=== PATIENT | male | born 1945 | race Caucasian/White ===

== ENCOUNTER 2016-03-30 05:40 | Emergency (ER) | payer OTHER ==
[~2016-03-30] VITALS: Ht 170.1 cm; Wt 117.9 kg
[~2016-03-30 05:40] MED LIST: ALLOPURINOL100 MG PO; AMLODIPINE10 MG PO; CITALOPRAM40 MG PO; DELTASONE20 M1 PO; DIABETA2.5 MG PO; IRON1 CHI; LASIX40 MG PO; LISINOPRIL40 MG PO; MS CONTIN30 MG PO; NEURONTIN300 MG PO; VICODIN ES 7501 TA1 PO; [UNRECOGNIZED DRUG - OTHER]
[2016-03-30 06:02] LABS: BASO % 0.3 % (0.0-1.0); EOS # 0.2 10*3/uL (0.0-0.4); EOS % 1.3 % (1.0-4.0); HEMATOCRIT 42.2 % (42.0-52.0); HEMOGLOBIN 12.6 g/dl (14.0-18.0); IG # 0.1 10*3/uL (0.0-0.1); LYMPH # 1.5 10*3/uL (1.3-4.4); LYMPH % 9.7 % (27.0-41.0); MEAN CELL VOLUME 96.6 fl (80.0-94.0); MEAN CORPUSCULAR HGB 28.8 pg (27.0-31.0); MEAN CORPUSCULAR HGB CONC 29.9 g/dl (33.0-37.0); MEAN PLATELET VOLUME 11.5 fl (9.6-12.3); MONO % 6.5 % (3.0-9.0); NEUT # 12.8 10*3/uL (2.3-7.9); NEUT % 81.8 % (47.0-73.0); PLATELET COUNT AUTOMATED 192 10*3/uL (130-400); RED BLOOD COUNT 4.37 10*6/uL (4.50-5.90); WHITE BLOOD COUNT 15.6 10*3/uL (4.8-10.8)
[2016-03-30 06:11] LABS: ABG BASE EXCESS -1.4 mmol/L (-2.0-2.0); ABG HCO3 26.9 mmol/l (22-26); ABG TEMPERATURE 98.6 F (98.0-99.0); ARTERIAL BLOOD GAS PH 7.234 (7.35-7.45); ARTERIAL BLOOD GAS PO2 61.3 mmHg (80-90)
[2016-03-30] MEDS ORDERED: APRESOLINE10 MG PO (06:22)
[2016-03-30] MEDS ORDERED: CALCITRIOL0.25 MCG PO (06:22)
[2016-03-30 06:26] LABS: POTASSIUM 5.1 mmol/L (3.5-5.1)
[2016-03-30] MEDS ORDERED: NOVOLIN 70100 UNIT/1 SQ ×2 (06:34→06:35)
[2016-03-30] MEDS ORDERED: ALLOPURINOL100 MG PO (06:36)
[2016-03-30] MEDS ORDERED: LABETALOL HCL200 MG PO (06:36)
[2016-03-30] MEDS ORDERED: FLOMAX0.4 MG PO (06:36)
[2016-03-30] MEDS ORDERED: SPIRONOLACTONE25 MG PO (06:37)
[2016-03-30] MEDS ORDERED: CITALOPRAM40 MG PO (06:38)
[2016-03-30] MEDS ORDERED: PROPRANOLOL HCL80 M3 PO (06:38)
[2016-03-30] MEDS ORDERED: MS CONTIN15 MG PO (06:39)
[2016-03-30 06:58] LABS: BILIRUBIN NEGATIVE (NEGATIVE); BLOOD NEGATIVE (NEGATIVE); CLARITY CLEAR (CLEAR); COLOR YELLOW (YELLOW); GLUCOSE NEGATIVE (NEGATIVE); KETONE NEGATIVE (NEGATIVE); LEUKO ESTERASE NEGATIVE (NEGATIVE); NITRITE NEGATIVE (NEGATIVE); PROTEIN 1+ (NEGATIVE); UROBILINOGEN 0.2 E.U./dl (0.2-1.0)
[2016-03-30 07:19] LABS: BACTERIA TRACE; EPITHELIAL CELLS 0-2; URINE REFLEX COMMENT NO (NO); WBC 0-2 wbc/hpf (0-5)
== END 2016-03-30 08:18 | disposition short-term general hospital (02) ==
LOC: ED 05:40
PROVIDERS: Emergency Medicine
DX: R06.00 Dyspnea, unspecified (principal); J96.01 Acute respiratory failure with hypoxia; E87.70 Fluid overload, unspecified; I12.9 Hypertensive chronic kidney disease with stage 1 through stage 4 chronic kidney disease, or unspecified chronic kidney disease; N18.9 Chronic kidney disease, unspecified; Z88.1 Allergy status to other antibiotic agents; Z79.4 Long term (current) use of insulin

== ENCOUNTER 2016-06-07 00:32 | Inpatient (IN) | payer OTHER ==
[2016-06-07] VITALS (10 sets, daily range): BP systolic 114–160; BP diastolic 50–84
[~2016-06-07] VITALS: Ht 177.8 cm; Wt 152.6 kg
--- NOTE | ~2016-06-07 | CON ---
[place], [place] REPORT OF CONSULTATION NAME: JOSH HOWARD UNIT #: [id number] ROOM: 521 DOCTOR: RAMÍREZ STEEL MD BIRTHDATE: [birth year] DOS: 06/09/2016 HISTORY OF PRESENT ILLNESS: The patient is a 70-year-old female with a known history of diastolic heart failure, history of end-stage COPD, sleep apnea, recently admitted to the hospital with severe CHF. The patient had a stress test and echocardiogram basically showed an ejection fraction about 45% and patient was readmitted with severe shortness of breath and progressive dyspnea. No acute EKG changes suggestive of myocardial ischemia. The patient has stage 4 kidney disease also and patient got admitted on the . The patient being admitted adequately, diuresed and doing well, no acute EKG changes suggestion of myocardial injury. The patient has a small right pleural effusion with bibasilar atelectasis by chest x-ray. PAST MEDICAL HISTORY: Depression, sleep apnea, history of CVA, chronic kidney disease, diabetes mellitus, obesity, hypertension, hyperlipidemia. PAST SURGICAL HISTORY: Back surgery, carpal tunnel surgery, history of artificial ____. SOCIAL HISTORY: Does not drink any alcohol. Former smoker. FAMILY HISTORY: Noncontributory. ALLERGIES: ERYTHROMYCIN. HOME MEDICATIONS: Hydralazine, insulin, labetalol, morphine, spironolactone, torsemide. REVIEW OF SYSTEMS: CONSTITUTIONAL: No fever, no chills. HEENT: Denies any visual disturbances or hearing problems. CARDIOVASCULAR: Reports lower extremity edema. No chest discomfort. No palpitations. RESPIRATORY: Significant shortness of breath with coughing and wheezing. ABDOMEN: Soft, obese. EXTREMITIES: About 2+ edema. NEUROLOGIC: No syncope. PSYCHIATRIC: Intact. SKIN: No rashes. PHYSICAL EXAMINATION: VITAL SIGNS: Blood pressure is 140/70. NECK: Elevated jugular venous distention. LUNGS: Diminished air entry. HEART: Heart sounds are regular. ABDOMEN: Soft, nontender, obese. EXTREMITIES: Intact pulses. NEUROLOGICAL: Stable. IMAGING: Chest x-ray showed right middle lobe pneumonia, pulmonary artery [place], [place] REPORT OF CONSULTATION NAME: JOSH HOWARD UNIT #: [id number] ROOM: 521 DOCTOR: RAMÍREZ STEEL MD BIRTHDATE: [birth year] hypertension. LABORATORY DATA: Shows hemoglobin 10.1, hematocrit 34, platelet count within normal limits. Sodium 139, potassium 5.1, creatinine is 2.7. INR is 1.0. IMPRESSION: The patient with acute respiratory failure, probable pneumonia, morbid hypertension, history of diastolic heart failure. Echocardiogram showed an ejection fraction about 45%. The patient underwent modified barium swallow also, has pharyngeal swallowing and was recommended soft diet. Echo as mentioned showed an EF of 45%. RECOMMENDATIONS: To continue with the present medications. Strict I's and O's ____ the patient is on vancomycin and ____, small gentle diuretic, monitor the renal function closely. Potassium is elevated. The patient has chronic renal insufficiency and we will follow up. RAMÍREZ STEEL MD CM:CONSTR:REPORT OF CONSULTATION 0714 06/09/16 0750 interface
--- NOTE | ~2016-06-07 | PR ---
[place], [place] PROGRESS NOTE NAME: JOSH HOWARD UNIT #: [id number] ROOM: 521 DOCTOR: RAMÍREZ STEEL MD BIRTHDATE: [birth year] DOS: 06/11/2016 SUBJECTIVE: The 24-hour events noted. The patient is comfortably sleeping. Clinical condition is improving. OBJECTIVE: VITAL SIGNS: Todays blood pressure is elevated to be 170/80. HEENT: Unremarkable. NECK: Supple, no JVD. LUNGS: Diminished breath sounds. LABORATORY DATA: Urine output is negative 960. Hemoglobin 10.1, hematocrit 33.8, BUN and creatinine is 19 and 2.7, which is significantly increased. IMPRESSION AND PLAN: Pneumonia, respiratory failure, diastolic heart failure, renal insufficiency stage IV, depression, chronic back pain, obstructive sleep apnea. There is no clinical evidence of cardiac decompensation. The patient probably increased the Coreg if the blood pressure is still elevated. The patient's diuretics should be closely watched as the patient is going into renal failure if he continues to be hypertensive. The patient is already on Aldactone also which should be taken into consideration and if the blood pressure is elevated add hydralazine to the current regimen, maybe start with 12.5 b.i.d. We will closely follow up. RAMÍREZ STEEL MD CM:PNTRANS [id number] RAMÍREZ STEEL MD 06/11/16 0751 interface
--- NOTE | ~2016-06-07 | PROC NOTE ---
[place], [place] PROCEDURE NOTE NAME: JOSH HOWARD UNIT #: [id number] ROOM: 521 DOCTOR: PETE SILVER BIRTHDATE: [birth year] DOS: 06/08/2016 MODIFIED BARIUM SWALLOW LOCATION: [facility], room 521, bed 1. DOCTOR: Dr. Tavares. RADIOLOGIST: Dr. Pollock. BACKGROUND INFORMATION: The patient is a 70-year-old male, who was seen for modified barium swallow. This test was ordered to rule out aspiration. The patient has experienced recurrent pneumonia. He also has a history of CVA. The patient reported a choking episode occurring about a week ago. Further medical history includes CHF, acute respiratory failure, end-stage renal disease, DM, HTN, depression. He currently receives a regular diet and thin liquids. For today's assessment, he was alert and able to follow commands. He was receiving oxygen via nasal cannula. Oral peripheral examination revealed presence of few natural teeth. Lingual, labial, and buccal skills were within normal limits in terms of strength, range of motion, and coordination. The patient was able to volitionally cough and swallow. METHODS AND MATERIALS USED FOR THE EXAM: The patient was positioned in the lateral plane and examination was viewed under fluoroscopy. The patient was presented with a variety of consistencies to assess swallowing skills including applesauce mixed with barium presented in half teaspoon amounts, barium-coated banana and cookie presented in bite size pieces and thin liquid barium taken by cup. The patient swallowed from a cup in his normal sip size amount. ORAL PHASE: Unremarkable. PHARYNGEAL PHASE: Unremarkable. ESOPHAGEAL PHASE: This phase of the swallow was not formally assessed during this examination. IMPRESSIONS AND RECOMMENDATIONS: Based upon assessment results, this 70-year-old patient presents with oral and pharyngeal swallowing skills that are within normal limits. It is recommended that he remain on present diet. The patient was educated on universal safe swallow precautions to use with meals including small bites and sips, eating slowly and chewing thoroughly. The patient verbalized understanding and agreement of information provided. No followup therapy is recommended at this time. The patient's nurse was also educated on results and verbalized understanding. Thank you very much for this referral. Should you have any questions regarding this patient, please contact the speech pathologist at [phone]. [place], [place] PROCEDURE NOTE NAME: JOSH HOWARD UNIT #: [id number] ROOM: 521 DOCTOR: PETE ISLVER BIRTHDATE: [birth year] PETE SILVER CM:PROCNOTE:PROCEDURE NOTE [id number] PETE SILVER
--- NOTE | ~2016-06-07 | PR ---
[place], [place] PROGRESS NOTE NAME: JOSH HOWARD UNIT #: [id number] ROOM: 521 DOCTOR: KARL BUSCH MD BIRTHDATE: [birth year] DOS: 06/10/2016 SUBJECTIVE: This gentleman was admitted with chest infection. He also has mildly reduced systolic function of the left ventricle and has had diastolic heart failure. He was admitted to the hospital a few days ago. He has very little cough now. No chest pain or palpitations, has not had any fever or chills. His appetite is fine. OBJECTIVE: GENERAL: He looks well, he is a very large man. VITAL SIGNS: Temperature is 98.6 degrees Fahrenheit, pulse is 80 regular, blood pressure 173/76, most of the blood pressures have been modestly elevated. CARDIOVASCULAR: JVP is normal and there is hardly any edema of lower extremities. LUNGS: Breath sounds are diminished with some adventitious sounds. IMPRESSION: 1. Acute chest infection, being treated. 2. There is no clinical evidence of cardiac decompensation. Current cardiac medications should be continued. I saw this patient on behalf of Dr. Esposito. KARL BUSCH MD CM:PNTRANS 08 [id number] KARL BUSCH MD 06/10/16 1212 interface
--- NOTE | ~2016-06-07 | CON ---
[place], [place] REPORT OF CONSULTATION NAME: JOSH HOWARD UNIT #: [id number] ROOM: 521 DOCTOR: KARL BUSCH MD BIRTHDATE: [birth year] DOS: 06/08/2016 HISTORY OF PRESENT ILLNESS: This is a 70-year-old -[place] man with a history of essential hypertension, diabetes mellitus, morbid obesity, and I believe heart failure, what kind is not known to me. He has never had a heart attack and had a stress test in the very remote past. He has some kidney disease as well and COPD. Couple of days prior to this admission, he became more and more short of breath and presented to the ER with worsening shortness of breath. He had no cough, no expectoration. He had no fever or chills. His appetite was fine. He had no palpitations or chest pain. He has not had any swelling of the legs. He has had no nausea, abdominal pain, or blood in the stools. HOME MEDICATIONS: Include allopurinol, Calcitriol, vitamin D, citalopram, hydralazine 20 mg t.i.d., labetalol 400 mg b.i.d., MS Contin 15 mg b.i.d., spironolactone 25 mg, 12.5 mg daily, Flomax 0.4 mg daily, torsemide 100 mg half tablet daily, and NovoLog mix 50/30 60 units b.i.d. PHYSICAL EXAMINATION: GENERAL: This reveals a patient who is morbidly obese. He is comfortable, having his lunch. He is afebrile. There is no thyromegaly or finger clubbing. VITAL SIGNS: Pulse is 80 bit irregular. Blood pressure 176/60, blood pressure has been mildly elevated since admission. NECK: JVP is normal. AJR is negative. No bruit in the neck. HEART: There is no cardiomegaly. Cardiac auscultation reveals distant heart sounds. No obvious murmurs. 1+ pretibial edema. RESPIRATORY: Breath sounds are moderately diminished, probably because of morbid obesity. Very few adventitious sounds are audible. LABORATORY DATA: Chest x-ray demonstrated atelectasis on the right side, and a CT scan was performed which demonstrated no pulmonary embolism but finding consistent with pulmonary hypertension and right middle lobe pneumonia. When I reviewed the chest x-ray, it did appear to show some pulmonary vascular congestion. Troponin-I level is less than 0.015. Hemoglobin 10.8 g/dL. BUN 58, creatinine 2.52. IMPRESSION: 1. This patient had acute onset of shortness of breath, probably due to right lower lobe pneumonia, which on chest x-ray is not apparent. CT had identified this abnormality. I think shortness of breath is probably to some extent due to diastolic dysfunction as well, and volume status does not seem to be bad, i.e., normal jugular venous pressure and no edema of the lower extremities. 2. Chronic kidney disease, fairly advanced. 3. Moderate anemia is present, probably due to chronic kidney disease. [place], [place] REPORT OF CONSULTATION NAME: JOSH HOWARD UNIT #: [id number] ROOM: 521 DOCTOR: KARL BUSCH MD BIRTHDATE: [birth year] RECOMMENDATIONS: An echocardiogram has already been ordered. Dr. Steel will read this, and for the time being, continue on his current medication including Demadex/torsemide. Dr. Steel will see this patient tomorrow, perhaps he can reduce the dose of Demadex. I thank you on behalf of Dr. Steel for this consult. PS: An EKG demonstrated normal sinus rhythm with PACs, rate 67 beats per minute, and an interventricular conduction defect with moderate left axis deviation. KARL BUSCH MD CM:CONSTR:REPORT OF CONSULTATION 1233 06/11/16 0744 [address] and RAMÍREZ STEEL MD
[~2016-06-07 00:32] MED LIST changes: +APRESOLINE10 MG PO; +CALCITRIOL0.25 MCG PO; +FLOMAX0.4 MG PO; +LABETALOL HCL200 MG PO; +MS CONTIN15 MG PO; +NOVOLIN 70100 UNIT/1 SQ; +PROPRANOLOL HCL80 M3 PO; +SPIRONOLACTONE25 MG PO
[2016-06-07 00:59] LABS: BASO % 0.3 % (0.0-1.0); EOS # 0.2 10*3/uL (0.0-0.4); EOS % 2.1 % (1.0-4.0); HEMATOCRIT 35.5 % (42.0-52.0); HEMOGLOBIN 10.8 g/dl (14.0-18.0); LYMPH # 1.2 10*3/uL (1.3-4.4); LYMPH % 10.9 % (27.0-41.0); MEAN CELL VOLUME 94.7 fl (80.0-94.0); MEAN CORPUSCULAR HGB 28.8 pg (27.0-31.0); MEAN CORPUSCULAR HGB CONC 30.4 g/dl (33.0-37.0); MEAN PLATELET VOLUME 12.3 fl (9.6-12.3); MONO # 0.8 10*3/uL (0.1-1.0); MONO % 7.4 % (3.0-9.0); NEUT # 8.3 10*3/uL (2.3-7.9); NEUT % 78.9 % (47.0-73.0); PLATELET COUNT AUTOMATED 171 10*3/uL (130-400); RED BLOOD COUNT 3.75 10*6/uL (4.50-5.90); RED CELL DISTRI WIDTH 15.3 % (0-14.5); WHITE BLOOD COUNT 10.6 10*3/uL (4.8-10.8)
[2016-06-07] MEDS ORDERED: NOVOLOG MI100 UNIT/2 SQ (01:07)
[2016-06-07] MEDS ORDERED: MS CONTIN15 MG PO (01:08)
[2016-06-07] MEDS ORDERED: HYDRALAZINE10 MG PO (01:11)
[2016-06-07] MEDS ORDERED: TAMSULOSIN HCL0.4 MG PO (01:12)
[2016-06-07] MEDS ORDERED: LABETALOL HCL200 MG PO (01:12)
[2016-06-07] MEDS ORDERED: TORSEMIDE100 MG PO (01:13)
[2016-06-07] MEDS ORDERED: ALDACTONE25 MG PO (01:13)
[2016-06-07] MEDS ORDERED: VITAMIN D31000 IU PO (01:14)
[2016-06-07] MEDS ORDERED: ROCALTROL0.25 MC2 PO (01:14)
[2016-06-07 01:18] LABS: PROTHROMBIN TIME 10.7 SECONDS (9.0-12.4)
[2016-06-07 01:36] LABS: BUN 58 mg/dl (7-24); CARBON DIOXIDE 29 mmol/L (21-32); CHLORIDE 101 mmol/L (98-107); CKMB 2.4 ng/ml (0.5-3.6); CPK 77 U/L (39-308); EST GLOM FILT AFRICAN AMERICAN 30 ml/min; GLUCOSE 100 mg/dL (65-99); SODIUM 140 mmol/L (136-145)
[2016-06-07 01:37] LABS: TROPONIN I < 0.015 ng/ml (<0.045)
[2016-06-07 05:46] LABS: ABG BASE EXCESS 4.2 mmol/L (-2.0-2.0); ABG HCO3 29.5 mmol/l (22-26); ABG TEMPERATURE 98.1 F (98.0-99.0); ARTERIAL BLOOD GAS PH 7.388 (7.35-7.45); ARTERIAL BLOOD GAS PO2 89.3 mmHg (80-90)
[2016-06-07 06:49] LABS: CKMB 1.8 ng/ml (0.5-3.6); CPK 67 U/L (39-308)
[2016-06-07 06:51] LABS: TROPONIN I < 0.015 ng/ml (<0.045)
[2016-06-07 12:31] LABS: CPK 71 U/L (39-308)
[2016-06-07 12:33] LABS: TROPONIN I < 0.015 ng/ml (<0.045)
[2016-06-08] VITALS: BP 169/70
[2016-06-08 06:30] LABS: HEMOGLOBIN 10.1 g/dl (14.0-18.0); MEAN CELL VOLUME 95.5 fl (80.0-94.0); MEAN CORPUSCULAR HGB 28.4 pg (27.0-31.0); MEAN CORPUSCULAR HGB CONC 29.7 g/dl (33.0-37.0); MEAN PLATELET VOLUME 12.5 fl (9.6-12.3); PLATELET COUNT AUTOMATED 159 10*3/uL (130-400); RED BLOOD COUNT 3.56 10*6/uL (4.50-5.90); WHITE BLOOD COUNT 13.5 10*3/uL (4.8-10.8)
[2016-06-08 06:57] LABS: MAGNESIUM 2.6 mg/dL (1.5-2.1); PHOSPHOROUS 4.1 mg/dL (2.5-4.9); POTASSIUM 5.2 mmol/L (3.5-5.1)
[2016-06-08 07:01] LABS: PROTHROMBIN TIME 10.8 SECONDS (9.0-12.4)
[2016-06-08 07:06] LABS: FREE T4 1.27 ng/dl (0.76-1.46); THYROID STIM HORMONE (HS) 0.99 uIU/ml (0.358-4.75)
[2016-06-08 07:10] LABS: LYMPHOCYTE # 0.3 10*3/uL (1.3-4.4); MONOCYTE # 0.3 10*3/uL (0.1-1.0); NEUTROPHILS 96 % (47-73); TOTAL CELLS COUNTED 100 #CELLS
[2016-06-08 07:12] LABS: PLATELET SUFFICIENCY NORMAL (NORMAL); ROULEAUX SLIGHT
[2016-06-08 07:43] LABS: FOLIC ACID 17.71 ng/mL (>5.38)
[2016-06-08 08:00] VITALS: BP 176/70
[2016-06-08 12:00] VITALS: BP 160/70
[2016-06-08 16:00] VITALS: BP 156/71
[2016-06-08 20:00] VITALS: BP 154/61
[2016-06-09] VITALS: BP 166/70
[2016-06-09 06:43] LABS: HEMATOCRIT 33.8 % (42.0-52.0); HEMOGLOBIN 10.1 g/dl (14.0-18.0); MEAN CELL VOLUME 94.2 fl (80.0-94.0); MEAN CORPUSCULAR HGB 28.1 pg (27.0-31.0); MEAN CORPUSCULAR HGB CONC 29.9 g/dl (33.0-37.0); MEAN PLATELET VOLUME 11.6 fl (9.6-12.3); PLATELET COUNT AUTOMATED 168 10*3/uL (130-400); RED BLOOD COUNT 3.59 10*6/uL (4.50-5.90); RED CELL DISTRI WIDTH 14.8 % (0-14.5); WHITE BLOOD COUNT 11.4 10*3/uL (4.8-10.8)
[2016-06-09 07:11] LABS: POTASSIUM 5.1 mmol/L (3.5-5.1)
[2016-06-09 07:50] LABS: LYMPHOCYTE # 0.2 10*3/uL (1.3-4.4); NEUTROPHIL # 11.2 10*3/uL (2.3-7.9); NEUTROPHILS 98 % (47-73); PLATELET SUFFICIENCY NORMAL (NORMAL); POLYCHROMASIA SLIGHT; ROULEAUX SLIGHT; TOTAL CELLS COUNTED 100 #CELLS
[2016-06-09 08:00] VITALS: BP 170/82
[2016-06-09 12:00] VITALS: BP 174/70
[2016-06-09 16:00] VITALS: BP 155/64
[2016-06-09 20:00] VITALS: BP 171/70
[2016-06-10] VITALS: BP 155/93
[2016-06-10 04:00] VITALS: BP 173/76
[2016-06-10 08:00] VITALS: BP 179/88
[2016-06-10 12:00] VITALS: BP 169/60
[2016-06-10 16:00] VITALS: BP 171/76
[2016-06-10 20:00] VITALS: BP 155/80
[2016-06-11] VITALS: BP 179/81
[2016-06-11 04:00] VITALS: BP 170/84
[2016-06-11 06:13] LABS: POTASSIUM 5.1 mmol/L (3.5-5.1)
[2016-06-11 08:00] VITALS: BP 178/66
[2016-06-11] MEDS ORDERED: DOXYCYCLINE100 M3 PO (11:25)
[2016-06-11] MEDS ORDERED: PREDNISONE10 MG PO (11:25)
[2016-06-11] MEDS ORDERED: PROVENTIL0.09 MG/A1 INH (11:26)
== END 2016-06-11 11:30 | disposition home or self-care (01) | DRG 177 ==
LOC: ED 00:32 → 5E 01:55 → EDHOLD 01:55 → 5E 02:14
PROVIDERS: Emergency Medicine; Internal Medicine
PROC: BD11YZZ Fluoroscopy of Esophagus using Other Contrast (ICD-10-PCS; principal; 2016-06-08)
DX: J15.6 Pneumonia due to other Gram-negative bacteria (principal); J96.02 Acute respiratory failure with hypercapnia; I50.33 Acute on chronic diastolic (congestive) heart failure; B37.89 Other sites of candidiasis; N18.4 Chronic kidney disease, stage 4 (severe); I13.0 Hypertensive heart and chronic kidney disease with heart failure and stage 1 through stage 4 chronic kidney disease, or unspecified chronic kidney disease; J44.0 Chronic obstructive pulmonary disease with (acute) lower respiratory infection; Z68.42 Body mass index [BMI] 45.0-49.9, adult; E11.22 Type 2 diabetes mellitus with diabetic chronic kidney disease; E11.65 Type 2 diabetes mellitus with hyperglycemia; E66.01 Morbid (severe) obesity due to excess calories; N40.0 Benign prostatic hyperplasia without lower urinary tract symptoms; F41.1 Generalized anxiety disorder; F32.9 Major depressive disorder, single episode, unspecified; G47.33 Obstructive sleep apnea (adult) (pediatric); E55.9 Vitamin D deficiency, unspecified; M1A.9XX0 Chronic gout, unspecified, without tophus (tophi); G89.29 Other chronic pain; M54.9 Dorsalgia, unspecified; Z86.73 Personal history of transient ischemic attack (TIA), and cerebral infarction without residual deficits; Z87.891 Personal history of nicotine dependence; Z88.1 Allergy status to other antibiotic agents; Z79.4 Long term (current) use of insulin; Z79.899 Other long term (current) drug therapy; Z82.5 Family history of asthma and other chronic lower respiratory diseases; Z82.49 Family history of ischemic heart disease and other diseases of the circulatory system

== ENCOUNTER → 2016-09-03 | Outpatient (CLI) | payer OTHER ==
[~2016-09-03] MED LIST changes: +ALDACTONE25 MG PO; +DOXYCYCLINE100 M3 PO; +HYDRALAZINE10 MG PO; +NOVOLOG MI100 UNIT/2 SQ; +PREDNISONE10 MG PO; +PROVENTIL0.09 MG/A1 INH; +ROCALTROL0.25 MC2 PO; +TAMSULOSIN HCL0.4 MG PO; +TORSEMIDE100 MG PO; +VITAMIN D31000 IU PO
[2016-09-03 16:47] LABS: BILIRUBIN NEGATIVE (NEGATIVE); BLOOD NEGATIVE (NEGATIVE); CLARITY CLEAR (CLEAR); COLOR YELLOW (YELLOW); GLUCOSE NEGATIVE (NEGATIVE); KETONE NEGATIVE (NEGATIVE); LEUKO ESTERASE TRACE (NEGATIVE); NITRITE NEGATIVE (NEGATIVE); PH 5.5 (5.0-9.0); PROTEIN 1+ (NEGATIVE); UROBILINOGEN 0.2 E.U./dl (0.2-1.0)
[2016-09-03 16:55] LABS: RBC 0-2 rbc/hpf (0-2)
[2016-09-03 16:56] LABS: BACTERIA 1+; EPITHELIAL CELLS 0-2; HYALINE CAST 0-2; URINE REFLEX COMMENT YES (NO)
== END | disposition home or self-care (01) ==
LOC: LAB 16:32
PROVIDERS: Internal Medicine
DX: N39.0 Urinary tract infection, site not specified (principal)

== ENCOUNTER 2016-11-26 13:37 | Inpatient (IN) | payer OTHER ==
[~2016-11-26] VITALS: Ht 177.8 cm; Wt 148.8 kg
[2016-11-26 13:47] VITALS: BP 171/61
[2016-11-26 14:38] LABS: BASO % 0.4 % (0.0-1.0); EOS # 0.2 10*3/uL (0.0-0.4); EOS % 2.2 % (1.0-4.0); HEMATOCRIT 37.3 % (42.0-52.0); HEMOGLOBIN 11.3 g/dl (14.0-18.0); LYMPH % 14.6 % (27.0-41.0); MEAN CELL VOLUME 98.2 fl (80.0-94.0); MEAN CORPUSCULAR HGB 29.7 pg (27.0-31.0); MEAN CORPUSCULAR HGB CONC 30.3 g/dl (33.0-37.0); MEAN PLATELET VOLUME 11.5 fl (9.6-12.3); MONO # 0.7 10*3/uL (0.1-1.0); MONO % 9.6 % (3.0-9.0); NEUT % 72.9 % (47.0-73.0); PLATELET COUNT AUTOMATED 158 10*3/uL (130-400); RED CELL DISTRI WIDTH 15.7 % (0-14.5); WHITE BLOOD COUNT 6.9 10*3/uL (4.8-10.8)
[2016-11-26 14:46] LABS: ACT PARTIAL THROMBO TIME 26.3 SECONDS (20.8-31.5)
--- NOTE | 2016-11-26 14:51 | NUR ---
PT REQUESTING HIS RIGHT SHOULDER AND HIP BE X-RAYED DUE TO PAIN FROM FALL TODAY PRIOR TO ARRIVAL. ALSO STATES HE FEELS HIS BLOOD SUGAR WAS LOW. BLOOD SUGAR TESTED AND WAS AT 67. ORANGE JUICE PROVIDED. MADE AWARE. JULIEN CASE RN.
[2016-11-26 14:53] VITALS: BP 165/82
[2016-11-26 14:55] LABS: ALBUMIN 3.2 gm/dl (3.1-4.5); CREATININE 2.57 mg/dL (0.70-1.30); POTASSIUM 4.7 mmol/L (3.5-5.1); TOTAL PROTEIN 7.4 gm/dL (6.4-8.2)
[2016-11-26 15:43] LABS: BILIRUBIN NEGATIVE (NEGATIVE); BLOOD NEGATIVE (NEGATIVE); CLARITY CLEAR (CLEAR); COLOR YELLOW (YELLOW); GLUCOSE NEGATIVE (NEGATIVE); KETONE NEGATIVE (NEGATIVE); LEUKO ESTERASE NEGATIVE (NEGATIVE); NITRITE NEGATIVE (NEGATIVE); PH 5.5 (5.0-9.0); UROBILINOGEN 0.2 E.U./dl (0.2-1.0)
[2016-11-26 15:53] LABS: EPITHELIAL CELLS 0-2; WBC 0-2 wbc/hpf (0-5)
--- NOTE | 2016-11-26 17:00 | NUR ---
Time: 1699 A 71 year old MALE admitted to under services of ALFIE FARRELL DO. Pt. arrived via bed from ER. Chief complaint: WOUND-SKIN DRAINAGE. MICHELLE DONATO
[2016-11-26] MEDS ORDERED: AMOXICILLIN500 M2 PO (17:27)
[2016-11-26] MEDS ORDERED: XANAX0.25 MG PO (17:28)
[2016-11-26] MEDS ORDERED: PROAIR HFA8.5 GM INH (17:28)
[2016-11-26] MEDS ORDERED: TYLENOL EXTRA500 M2 PO (17:28)
[2016-11-26] MEDS ORDERED: NORCO 5-325 TA1 EACH PO ×2 (17:38→17:40)
[2016-11-26] MEDS ORDERED: NOVOLIN 70100 UNIT/1 SQ ×2 (17:44→17:45)
[2016-11-26 18:23] VITALS: BP 160/66
--- NOTE | 2016-11-26 18:35 | NUR ---
ATTEMPT MADE TO CONSULT DR EVERETT AND THEY STATED THEY DON'T TAKE CONSULTS AFTER HOURS. WILL PASS ALONG TO NEXT SHIFT. ORDER LEFT UN-AKNOWLEDGED.
[2016-11-26 20:00] VITALS: BP 147/89
--- NOTE | 2016-11-26 20:20 | NUR ---
PATIENT CALLED ME TO HIS ROOM. PATIENT STATED THAT HE TOOK THE TAPE OFF OF HIS ARM WHERE HE HAD BLOOD WORK DONE AND IT RIPPED THE SKIN OF OF HIS ARM AND EVERY TIME HE LAID HIS ARM DOWN IT WOULD BURN. PATIENT CONSENTED TO PHOTOS WHICH WERE THEN TAKEN. PATIENTS ARM WRAPPED WITH DRY GRUAZE DRESSING. DOCTOR INFORMED OF WOUND.
--- NOTE | 2016-11-26 21:47 | NUR ---
DOCTOR CHIVO INFORMED OF SKIN TEAR TO PATIENTS RIGHT ARM. WOUND CARE ORDRES REIEVED.
[2016-11-27] VITALS: BP 140/47
[2016-11-27 06:42] LABS: BASO % 0.5 % (0.0-1.0); EOS # 0.1 10*3/uL (0.0-0.4); EOS % 2.3 % (1.0-4.0); HEMATOCRIT 36.5 % (42.0-52.0); LYMPH # 0.7 10*3/uL (1.3-4.4); LYMPH % 11.7 % (27.0-41.0); MEAN CELL VOLUME 98.9 fl (80.0-94.0); MEAN CORPUSCULAR HGB 29.8 pg (27.0-31.0); MEAN CORPUSCULAR HGB CONC 30.1 g/dl (33.0-37.0); MEAN PLATELET VOLUME 12.3 fl (9.6-12.3); MONO # 0.5 10*3/uL (0.1-1.0); NEUT # 4.8 10*3/uL (2.3-7.9); NEUT % 77.2 % (47.0-73.0); PLATELET COUNT AUTOMATED 158 10*3/uL (130-400); RED BLOOD COUNT 3.69 10*6/uL (4.50-5.90); RED CELL DISTRI WIDTH 15.6 % (0-14.5); WHITE BLOOD COUNT 6.2 10*3/uL (4.8-10.8)
[2016-11-27 07:09] LABS: CREATININE 2.35 mg/dL (0.70-1.30); MAGNESIUM 2.3 mg/dL (1.5-2.1); PHOSPHOROUS 3.5 mg/dL (2.5-4.9); POTASSIUM 4.5 mmol/L (3.5-5.1)
[2016-11-27 07:15] LABS: THYROID STIM HORMONE (HS) 0.95 uIU/ml (0.358-4.75); VITAMIN D, 25-HYDROXY 49.4 ng/mL (30-100)
[2016-11-27 08:00] VITALS: BP 156/84
--- NOTE | 2016-11-27 08:56 | NUR ---
JOSH HOWARD [id number] Please refer to the physician's history and physical for past medical history, comorbid conditions, and allergies. Diagnosis: CELLULITIS OF RLE ELEVATED BLOOD PRESSURE READING Ac Score: 17,AT RISK WOUND DESCRIPTIONS: Location of the wound: right medial leg Type of wound: traumatic Thickness: Partial Size: 7.5cm x 9.0cm x 0.1cm Tunneling: none Undermining: none Sinus Tract: none Presence of Exudate: Sanguineous Amount: Moderate Color: Red Odor: Musty Periwound Skin Appearance: Erythema Wound edges: approximated Pain (associated with wound): none at time of assessment How does patient state this happened? pt stated it was due to rubbing it on the side of the bed last wednesday or wednesday. He stated he has been using silavdene at home for treatments. Location of the wound: right ac Type of wound: skin tear Thickness: Partial Size: 1.0cm x 1.0cm x 0.1cm Tunneling: none Undermining: none Sinus Tract: none Presence of Exudate: Sanguineous Amount: Light Color: Red Odor: None Periwound Skin Appearance: Normal Wound edges: approximated Pain (associated with wound): none at time of assessment How does patient state this happened? pt stated it occured when he removed the tape from the lab draw last night. Surface the patient is resting on: Isoflex SKIN PREVENTION RECOMMENDATION: 1. Pressure redistribution support surface as appropriate 2. Elevate heels 3. Remove boots/TEDS every shift and reapply 4. Head of bed 30 degrees as tolerated 5. Assess nutrition and hydration 6. Manage moisture 7. Avoid the use of containment devices while in bed 8. Use absorptive products on surfaces limit layers of linens on bed 9. Turn and reposition every 1-2 hours in bed and every 1 hour in chair as tolerated 10. Weight shifts every 15 minutes while up in chair 11. Offloading with pillows or device to keep heels elevated off bed 12. Monitor skin at least every shift 13. Inspect under medical devices twice a day WOUND TREATMENT RECOMMENDATIONS: Skin tear guideline nss, sureprep, versatel, hydrogel, optifoam gentle. Consult podiatry for Right medial leg.
--- NOTE | 2016-11-27 09:00 | NUR ---
Senior Net Web Developer in to talk to patient. Patient states lives at home with . There are no steps in the home. Physician: elaine casillas Pharmacy: [facility] health services: none Patient's level of ADLs: MINIMAL ASSIST Patient has working utilities: all working DME: cane, motorized wheelchair Follow-up physician's appointment after d/c: will be made by hospitalist nurse director upon discharge Does patient want to access PORTAL?: no Discharge plan discussed with patient, patient lives at home with , states he usually gets around with a motorized wheelchair, he does most of the cooking, but lately he has had some hip pain and has been unable to do alot of things, discussed with him a short term correction stay for rehab prior to going back home, patient was unsure if he wanted to do this, stated that he wanted to discuss this with his , will have certified financial planner follow up with patient and regarding snf. ROMARIO VÁSQUEZ
[2016-11-27 12:00] VITALS: BP 152/78
--- NOTE | 2016-11-27 12:21 | NUR ---
insurance demos given to Denise, emailed corporate fax team fax number for clinials
--- NOTE | 2016-11-27 12:59 | NUR ---
special events planner in to see patient and discuss discharge planning. at bedside. Talked about skilled rehab, patient adamately refuses.
--- NOTE | 2016-11-27 13:06 | NUR ---
PHYSICAL THERAPY PAtient evaluated on 4, full evaluation to follow. Continue with PT as per plan of care with fall, left SI/sacral pain and acute debility precautions. May require SNF for impaired mobility in order to return to home at [facility]. PAtient is moderate complexity via chart review, tests andf evaluation: [id number]. Thank you for this referral. Sue Bonilla,PT
--- NOTE | 2016-11-27 13:45 | NUR ---
Occupational Therapy evaluation completed on 4 with full eval to complete. Precautions include fall risk, obese, o2, iv UE, moderate complexity. Recommend OT per POC and SNF upon d/c. If refuses SNF, then recommend 24 hr supervision and home health OT. Thank you for this referral. Pao Cook OTR/L
[2016-11-27 16:00] VITALS: BP 186/92
--- NOTE | 2016-11-27 17:30 | NUR ---
PATIENTS DAUGHTER CALLED AND REQUESTED THAT PATIENT GO TO A REHAB INSTEAD OF GOING HOME. SHE STATES THAT PATIENT CAN NOT TAKE CARE OF HIMSELF, WAS NOT AMBULATORY AT HOME, NOT EATING RIGHT AND NOT SHOWERING. SHE STATED THAT HIS IS UNABLE TO TAKE CARE OF HIM. CASE MANAGEMENT WAS NOTIFIED.
--- NOTE | 2016-11-27 17:30 | NUR ---
WAS ADVISED BY XRAY THAT PATIENT REFUSED TO HAVE THE ARTERIAL US OF THE RIGHT LEG. HE STATED THAT HE WAS IN TO MUCH PAIN AND RETURNED TO THE FLOOR. PAIN MEDICATION WAS GIVEN AND THEY ADVISED THEY WOULD BE IN XRAY UNTIL 6PM. AFTER THE PAIN MEDICATION PATIENT STILL REFUSED. THE VENOUS US OF THE LEFT AND RIGHT LEGS WERE COMPLETED AND THE ARTERIAL OF THE LEFT LEG.
[2016-11-27 20:00] VITALS: BP 146/78; BP 170/77
--- NOTE | 2016-11-27 20:22 | NUR ---
DR VILLARREAL'S OFFICE WAS NOTIFIED OF A CONSULT FOR CELLULITIS OF THE LEG. WAS ADVISED THAT DR MONTIEL WOULD BE NOTIFIED BECAUSE HE IS COVERING.
[2016-11-28] VITALS: BP 156/61
[2016-11-28 04:00] VITALS: BP 161/64
[2016-11-28 07:05] LABS: BASO % 0.3 % (0.0-1.0); EOS # 0.2 10*3/uL (0.0-0.4); HEMOGLOBIN 10.2 g/dl (14.0-18.0); LYMPH # 0.9 10*3/uL (1.3-4.4); LYMPH % 14.9 % (27.0-41.0); MEAN CELL VOLUME 98.3 fl (80.0-94.0); MEAN CORPUSCULAR HGB 29.5 pg (27.0-31.0); MEAN PLATELET VOLUME 11.7 fl (9.6-12.3); MONO # 0.7 10*3/uL (0.1-1.0); MONO % 11.5 % (3.0-9.0); NEUT # 4.2 10*3/uL (2.3-7.9); PLATELET COUNT AUTOMATED 139 10*3/uL (130-400); RED BLOOD COUNT 3.46 10*6/uL (4.50-5.90); RED CELL DISTRI WIDTH 15.6 % (0-14.5)
[2016-11-28 07:13] LABS: CREATININE 2.22 mg/dL (0.70-1.30); MAGNESIUM 2.2 mg/dL (1.5-2.1); PHOSPHOROUS 3.2 mg/dL (2.5-4.9); POTASSIUM 4.9 mmol/L (3.5-5.1)
--- NOTE | 2016-11-28 07:51 | NUR ---
24 HR chart check completed.
[2016-11-28 08:00] VITALS: BP 160/68
[2016-11-28 12:00] VITALS: BP 140/98
--- NOTE | 2016-11-28 13:21 | NUR ---
PT COMPLAINS OF HEADACHE, TYLENOL GIVEN. SEE MAR. WILL MONITOR FOR EFFECTIVENESS
[2016-11-28 16:00] VITALS: BP 110/90
--- NOTE | 2016-11-28 18:39 | NUR ---
PT THOUGHT BLOOD SUGAR WAS LOW, BLOOD SUGAR CHECKED 93 AT THIS TIME. REQUSTED SNACK
--- NOTE | 2016-11-28 19:45 | NUR ---
DR. VALDOVINOS CONTACTED IN REGARDS TO PT. ANXIETY. NURSE REQUESTED AN ORDER FOR ATIVAN BECAUSE IT WAS EFFECTIVE IN THE PAST WITH PT. ANXIETY, DR. VALDOVINOS DENIED REQUEST BECAUSE XANAX WAS GIVEN TO PT. AT APPROXIMATELY 1700. NO OTHER ORDERS RECIEVED.
--- NOTE | 2016-11-28 23:45 | NUR ---
IV started right antecubital with #20 protective cath after 2 attempts. Site prepped with Chloroprep. Sterile dressing applied. Patient tolerated procedure well. IV ATB infusing at 250 cc/hr. DAVID HARVEY
[2016-11-29] VITALS: BP 140/68; BP 142/64
--- NOTE | 2016-11-29 03:38 | NUR ---
24H CHART CHECK COMPLETE.
--- NOTE | 2016-11-29 08:27 | NUR ---
PT SITTING AT SIDE OF BED EATING BREAKFAST. REQUESTED FOR BLOOD SUGAR TO BE CHECKED, BLOOD SUGAR 113. ONLY WISHES TO TAKE 25 UNITS OF HIS PROGRAMED INSULIN
--- NOTE | 2016-11-29 08:39 | NUR ---
PT COMPLAINS OF HEADACHE, TYLENOL GIVEN. SEE MAR. WILL MONITOR FOR EFFECTIVENESS. PT DECIDED TO ONLY TAKE 20 UNITS OF SCHEDULED 70/30 INSULIN.
--- NOTE | 2016-11-29 09:30 | NUR ---
TYLENOL EFFECTIVE FOR HEADACHE/PAIN
[2016-11-29 11:18] VITALS: BP 168/82
[2016-11-29] MEDS ORDERED: DOXYCYCLINE100 M3 PO (11:39)
[2016-11-29 12:00] VITALS: BP 158/86
--- NOTE | 2016-11-29 13:38 | NUR ---
PT TO BE DISCHARGED. DRESSING TO RIGHT LOWER LEG COMPLETED TODAY, PT DOES NOT WANT DRESSING REMOVED AND REDONE FOR PHOTOS ON DISCHARGE.
--- NOTE | 2016-11-29 14:18 | NUR ---
Discharge instructions reviewed with patient/family. Patient receptive and verbalizes understanding. Follow-up care understands to call for appointments. Written instructions given to patient/family. iv removed, dressing applied EVA CAMACHO
--- NOTE | 2016-11-29 14:28 | NUR ---
TYLENOL GIVEN FOR HEADACHE. SEE MAY. PT DISCHARGED HOME
--- NOTE | 2016-11-30 08:16 | NUR ---
OCCUPATIONAL THERAPY CO-SIGN I approve of the Occupational Therapy notes written above. PAULETTE COUGHLIN OTR/La
== END 2016-11-29 14:18 | disposition home or self-care (01) | DRG 602 ==
LOC: ED 13:37 → EDHOLD 15:47 → 4E 15:47
PROVIDERS: Internal Medicine; Nurse Practitioner Family; ADMIT Internal Medicine
DX: L03.115 Cellulitis of right lower limb (principal); N17.0 Acute kidney failure with tubular necrosis; I50.32 Chronic diastolic (congestive) heart failure; I13.0 Hypertensive heart and chronic kidney disease with heart failure and stage 1 through stage 4 chronic kidney disease, or unspecified chronic kidney disease; N18.4 Chronic kidney disease, stage 4 (severe); E44.1 Mild protein-calorie malnutrition; Z68.42 Body mass index [BMI] 45.0-49.9, adult; F33.9 Major depressive disorder, recurrent, unspecified; E11.22 Type 2 diabetes mellitus with diabetic chronic kidney disease; D53.9 Nutritional anemia, unspecified; E55.9 Vitamin D deficiency, unspecified; Z96.1 Presence of intraocular lens; R29.6 Repeated falls; G89.29 Other chronic pain; M54.9 Dorsalgia, unspecified; N40.0 Benign prostatic hyperplasia without lower urinary tract symptoms; F41.1 Generalized anxiety disorder; M10.9 Gout, unspecified; E66.01 Morbid (severe) obesity due to excess calories; D72.810 Lymphocytopenia; W18.39XA Other fall on same level, initial encounter; Z74.01 Bed confinement status; Z88.8 Allergy status to other drugs, medicaments and biological substances; Z79.899 Other long term (current) drug therapy; Z87.891 Personal history of nicotine dependence; Z83.6 Family history of other diseases of the respiratory system; Z82.49 Family history of ischemic heart disease and other diseases of the circulatory system; Z80.9 Family history of malignant neoplasm, unspecified; Z83.3 Family history of diabetes mellitus; Z86.73 Personal history of transient ischemic attack (TIA), and cerebral infarction without residual deficits; Z79.4 Long term (current) use of insulin; Z98.49 Cataract extraction status, unspecified eye; Y93.89 Activity, other specified; Y92.89 Other specified places as the place of occurrence of the external cause; Y99.8 Other external cause status

== ENCOUNTER 2017-02-25 09:50 | Inpatient (IN) | payer OTHER ==
[~2017-02-25] VITALS: Ht 167.6 cm; Wt 149.0 kg
--- NOTE | ~2017-02-25 | PR ---
[place], [place] PROGRESS NOTE NAME: JOSH HOWARD UNIT #: [id number] ROOM: 404 DOCTOR: GREGORY ZARATE MD BIRTHDATE: [birth year] DOS: 03/01/2017 SUBJECTIVE: The patient was comfortably resting, sitting on the chair. The cough has been noted intermittently with reduction of the sputum. Denies symptoms of chest pain. The patient denies any hemoptysis. Shortness of breath has been noted gradually decreased. OBJECTIVE: VITAL SIGNS: For the patient shows normal temperature, respiratory rate 18, heart rate 78, blood pressure 138/51-135/53. Pulse oxygen saturation 3 liters 98% saturation recorded. HEENT: Chronic obesity. NECK: Supple. CARDIOVASCULAR: S1, S2 is audible. LUNGS: The patient was noted without any wheeze or crackles at present time. Breaths are noted mildly decreased bilaterally. ABDOMEN: Noted with chronic venous stasis pigmentation and some swelling and possibility of cellulitis as well. ABDOMEN: Soft, nontender. EXTREMITIES: Noted with chronic changes of the patient with possibly cellulitis as well. IMPRESSION: 1. The patient with severe acute bacterial bronchitis. The patient with Moraxella catarrhalis which has been treated with the antibiotics. 2. The origin of weakness and fatigue, suspected gastrointestinal bleeding for the patient with anemia, and morbid obesity. Clinical assessment for the possibility of sleep apnea disorder as well. PLAN OF MANAGEMENT: No changes in the plan of therapy for the patient at this time. Continuation of all other supportive plan of management and care. Usual treatment. Additional treatment changes needs to be done based on the progression of the illness. [place], [place] PROGRESS NOTE NAME: JOSH HOWARD UNIT #: [id number] ROOM: 404 DOCTOR: GREGORY ZARATE MD BIRTHDATE: [birth year] GREGORY MA MD CM:PNTRANS 1038 8 GREGORY ARTEAGA MD 03/02/17108 interface
--- NOTE | ~2017-02-25 | DS ---
[place], [place] DISCHARGE SUMMARY NAME: JOSH HOWARD UNIT #: [id number] ROOM: 404 DOCTOR: EVA KOENIG MD BIRTHDATE: [birth year] DOS: 03/01/2017 DIAGNOSES: 1. Type 2 diabetes mellitus, insulin-dependent with hypoglycemia. 2. Adult failure to thrive. 3. Gastrointestinal bleed, status post colonoscopy, which did not give us any clear cut ideas about why the patient had gastrointestinal bleed. The patient's prep was poor and would require another colonoscopy as an outpatient after proper prep. 4. Benign hypertension. 5. Stage IV renal failure with prerenal azotemia from gastrointestinal bleed. 6. Acute bronchitis with Moraxella catarrhalis. 7. Stasis dermatitis of lower legs with chronic lymphedema. 8. Poorly healing wound, right pretibial area. 9. Benign prostatic hypertrophy. 10. Morbid obesity. 11. Diastolic congestive heart failure by history. 12. Chronic back pain. DISCHARGE MEDICATIONS: ADA diet 2000 calories, Levaquin 500 mg daily, DuoNeb q.i.d., Pulmicort 0.5 b.i.d. in the breathing treatments, citalopram 40 daily, MS Contin 15 mg twice a day, hydralazine 75 t.i.d., labetalol 400 twice a day, tamsulosin 0.4 mg daily, torsemide 20 mg daily, Rocaltrol 0.25 mcg daily, [place] 5 q.4h. p.r.n., Breo Ellipta 100 one inhalation b.i.d., gabapentin 300 at bedtime, Lidoderm patch for local application daily, Proventil p.r.n. as a rescue inhaler 2 puffs q.6h. p.r.n., allopurinol 100 mg that has been cut back to 1 tablet daily and insulin has been changed to 12 units in the morning and 10 units in the evening. HOSPITAL COURSE: This patient is very well known to us. The patient is 71 years old, was found to be quite weak and tired, slight cough and multiple hypoglycemic spells with bright red blood per rectum while in the senior care. The patient was sent to the emergency room, was evaluated and was admitted. After admission, he was placed on slow IV hydration. Sputum cultures were ordered, which showed Moraxella catarrhalis. Pulmonary consultation with Dr. Sanchez was obtained. IV Levaquin to be continued. He has chronic renal failure with acute kidney injury, most likely from the GI bleed. Dr. Jennings did see the patient. Nephrotoxic meds were avoided in this patient. The patient ____ kidney functions overall stable and improved. Dr. Bruce did see from GI. Colonoscopy was attempted, but this was unsuccessful because of the poor prep and this will need to be performed as an outpatient after proper prep was given. He has been hypoglycemic at the senior care ____ insulin dosage was held and covered. His blood sugars are in the high 100s and can be restarted on a lower dose of insulin, which will be 70/30, 12 units in the morning and 10 units in the evening. The patient is awake and alert and oriented in no major distress. We will be getting an assessment for home O2. He does have a poorly healing [place], [place] DISCHARGE SUMMARY NAME: JOSH HOWARD UNIT #: [id number] ROOM: [facility] DOCTOR: EVA KOENIG MD BIRTHDATE: [birth year] wound on the right leg for which Medihoney can be applied. The wound care nurse did see the patient here on March 01. The patient is stable. The plan is to discharge him to home. PT/OT will be consulted at the senior care. EVA KOENIG MD CM:DISCHARG [id number] EVA KOENIG MD 03/01/17 1252 interface
--- NOTE | ~2017-02-25 | O ---
[place], [place] OPERATIVE NOTE NAME: JOSH HOWARD UNIT #: [id number] ROOM: 404 DOCTOR: CHERIE COLLADO MD BIRTHDATE: [birth year] DOS: 02/26/2017 INDICATIONS: The patient is a 71-year-old who has presented with chief complaint of microcytic anemia, chronic renal failure, multi medical issues, diabetes mellitus, congestive failure, morbid obesity, gouty arthritis, history of CVA, history of cellulitis of lower extremities as we mentioned, depression, chronic diastolic congestive heart failure, chronic lower back pain, BPH. PROCEDURE: Today's procedure part of investigation is colonoscopy. PREMEDICATION: Versed and Diprivan. SCOPE: Olympus forward-viewing colonoscope 10L video. REPORT: After putting the patient in left lateral position and application of lubricant to the scope, the scope was introduced. Thereafter, under direct visualization, advanced through the length of colon with difficulty. Difficulty with presence of large volume of stool in the colon. However, I did not see any ischemic event. My visualization was limited to about 20%, therefore, a colonoscopy lead to large volume of stool to be evacuated at the same time. The patient extubated, tolerated procedure well. IMPRESSION: Colonoscopy with retention of stool, suboptimal prep. PLAN AND DISCUSSION: We are going to proceed with supportive management and this patient requires future colonoscopies done as outpatient when he is up to par. At the present time transfusion, B12, folate and iron studies and clinical reassessment. Thank you very much indeed. CHERIE COLLADO MD CM:OPRECORD:OPERATIVE NOTE [id number] 19 CHERIE COLLADO MD 02/26/172019 interface
--- NOTE | ~2017-02-25 | PR ---
[place], [place] PROGRESS NOTE NAME: JOSH HOWARD UNIT #: [id number] ROOM: 404 DOCTOR: ALEKS COLEMAN MD BIRTHDATE: [birth year] DOS: 02/27/2017 SUBJECTIVE: The patient complaining of increasing shortness of breath as he is drinking the bowel prep and is on a liquid diet and eating salty broth. OBJECTIVE: GENERAL APPEARANCE: The patient is alert and oriented x 3, in no visible distress. Morbid obesity and shortness of breath with the patient being on oxygen. VITAL SIGNS: Blood pressure 128/68, heart rate 63 beats per minute, breathing 20 times per minute, temperature 98.1 degrees Fahrenheit. HEENT AND NECK: Exam within normal limits. CARDIOVASCULAR SYSTEM: Heart rate is regular in rate and rhythm. S1 and S2 normally audible. LUNGS: Show widespread rhonchi. ABDOMEN: Soft, nontender. No obvious organomegaly. Bowel sounds are present. EXTREMITIES: Without significant cyanosis or edema. IMPRESSION: 1. The patient has hypoxemia, requiring oxygen with chest congestion and rhonchi. I am consulting Dr. Sanchez to evaluate him and treat him. The patient also has some purulent sputum and sputum cultures have been sent. 2. Morbid obesity. The patient working with dietary, advanced disability. 3. Stage 4 kidney failure, which is chronic. Nephrology following. 4. Benign essential hypertension. Blood pressure being monitored and treated. 5. Chronic stasis dermatitis with poorly healing leg wounds. 6. Chronic back pains, treated with morphine and Percocet at home. 7. Acute gastrointestinal bleed for which he is waiting for endoscopy and colonoscopy by Dr. Bruce. ALEKS COLEMAN MD CM:PNTRANS 1342 1 ALEKS COLEMAN MD 02/28/17 0233 interface
--- NOTE | ~2017-02-25 | CON ---
[place], [place] REPORT OF CONSULTATION NAME: JOSH HOWARD UNIT #: [id number] ROOM: 404 DOCTOR: TOBIAS BEAVERSCHERIE BIRTHDATE: [birth year] DOS: 02/26/2017 HISTORY OF PRESENT ILLNESS: The patient has presented with anemia, drop in H and H to 8 and 29. However, microcytic and microcytic mixed picture. The patient with platelet of 129. INR has been 1.0, BUN and creatinine elevated to 95 and 3.6, GFR of 24. Electrolytes balanced. Bilirubin within normal limits. Alkaline phosphatase 131. His CBC differential was reassessed 9 and 30, H and H; microcytic indices again. PAST MEDICAL HISTORY: Associated with her chronic renal failure, dermatitis, cellulitis of lower extremities, thighs and systolic congestive failure, back pain, benign prostatic hypertrophy, hypertension, morbid obesity, diabetes mellitus. MEDICATIONS: Reviewed including insulin therapy and diuretics. ALLERGIES: CEPHALEXIN AND KEFLEX. FAMILY HISTORY: Noncontributory. SOCIAL HISTORY: Nonalcohol consumer. Nonsmoker, however, passive smoker. PAST SURGICAL HISTORY: Carpal tunnel, lower back surgery, eye surgery. PHYSICAL EXAMINATION: HEENT: Denies double vision, blurred vision. RESPIRATORY: Admits some shortness of breath. CARDIOVASCULAR: Denies chest pain. DIGESTIVE SYSTEM: No hematemesis, no hematochezia. PHYSICAL EXAMINATION: VITAL SIGNS: Morbidly obese patient. HEENT: Head normocephalic, nontraumatic. Mouth and buccal mucosa benign. NECK: Supple, no thyromegaly, no cervical lymphadenopathy. CHEST: Symmetric anatomy, equal expansion. Few scattered rhonchi. HEART: Normal sinus rhythm, no gallop, no murmur. ABDOMEN: Morbidly obese, large, soft. No hepato-organomegaly can be elicited. EXTREMITIES: Lower extremities cellulitis, stasis dermatitis, ulceration of the leg, bandage, 2+ edema, all has been recognized. NEUROLOGIC: Alert, oriented to time, place, person. IMPRESSION: Anemia, microcytic, chronic renal failure. OTHER ADJUNCTIVE DIAGNOSES: Diabetes mellitus, morbid obesity, hypertension, gouty arthritis, and other adjunctive diagnoses as outlined in paragraph of past medical, surgical history. PLAN AND DISCUSSION: We are going to organize a colonoscopy on this patient since he has not had one. [place], [place] REPORT OF CONSULTATION NAME: JOSH HOWARD UNIT #: [id number] ROOM: 404 DOCTOR: TOBIAS BEAVERS,CHERIE BIRTHDATE: [birth year] Thank you very much indeed. CHERIE COLLADO MD CM:CONSTR:REPORT OF CONSULTATION 1144 02/26/17 2020 interface
--- NOTE | ~2017-02-25 | EKG ---
[place], [place] ELECTROCARDIOGRAM REPORT NAME: JOSH HOWARD UNIT #: [id number] ROOM: 404 DOCTOR: KARL BUSCH MD BIRTHDATE: [birth year] DOS: 02/25/2017 TIME: 1031 hours. FINDINGS: 1. Normal sinus rhythm with PACs, rate is 67 beats per minute. 2. An intraventricular conduction defect is present with QRS of 130 milliseconds. 3. An abnormal ECG. 4. No previous tracing is available for comparison. KARL BUSCH MD CM:EKGRPT:ELECTROCARDIOGRAM REPORT 1730 05 KARL BUSCH MD
--- NOTE | ~2017-02-25 | CON ---
[place], [place] REPORT OF CONSULTATION NAME: JOSH HOWARD UNIT #: [id number] ROOM: 404 DOCTOR: GREGORY ZARATE MD BIRTHDATE: [birth year] DOS: 02/28/2017 PULMONARY CONSULTATION EVALUATION AND MANAGEMENT REASON FOR CONSULTATION: To assess the patient for excessive coughing, chest congestion, and hypoxic respiratory failure. HISTORY OF PRESENT ILLNESS: This is a 71-year-old white male patient with multiple medical problems, has been admitted under care of Dr. Marlen Nunez on 02/25/2017. The patient presented to the Emergency Room. The patient stated that he was noted severe generalized weakness and fatigue. He fell down to the bathroom. The patient was brought to the Emergency Room. He was receiving physical therapy for the patient as well. He was noted hypoglycemic episodes as well, which has been treated as well. He stated symptoms of shortness of breath, which was noted mild at times. He denies any symptoms of severe shortness of breath. He does have excessive cough and the patient with purulent sputum expectoration started as well. The patient denies any symptoms of hemoptysis or chest pain. Denies any symptoms of active wheezing. REVIEW OF SYSTEMS: CONSTITUTIONAL: Fatigue and tiredness reported without symptoms of fever or chills. EYES: Denies any burning, redness, or tenderness. EARS, NOSE, THROAT SYMPTOMS: Denies sore throat, hoarseness, otalgia, postnasal drainage, or epistaxis. CARDIOVASCULAR: Denies any angina pain, edema, pain of the lower extremities. Chronic venous stasis pigmentation in the lower extremity has been noted persistent for a long time. GASTROINTESTINAL: The patient denies symptoms of dysphagia, nausea, vomiting, diarrhea, abdominal pain, hematemesis, melena, or hematochezia. Denies any symptoms of dysphagia or abnormal weight loss. Has noted chronic severe obesity. GENITOURINARY SYMPTOMS: Denies dysuria, suprapubic pain, hematuria, history of chronic kidney disease stage 3 and stage 4. MUSCULOSKELETAL: No acute joint pain, redness, or tenderness. SKIN: Denies any new lesions or rashes. Have chronic venous stasis pigmentation in the lower extremity. CENTRAL NERVOUS SYSTEM: There were no focal deficits, but noted general weakness and fatigue. Denies symptoms of diplopia, syncopal episodes. The patient besides the only one noted passed out mostly related to the hypoglycemia episodes. The remaining systems were reviewed with the patient, they were noted all negative. PAST MEDICAL HISTORY: 1. History of severe obesity. 2. Type 2 diabetes mellitus. 3. Past history of CVA with neurological recovery. 4. Essential hypertension. [place], [place] REPORT OF CONSULTATION NAME: JOSH HOWARD UNIT #: [id number] ROOM: [facility] DOCTOR: GREGORY ZARATE MD BIRTHDATE: [birth year] 5. Generalized Anxiety disorder. 6. History of gout. 7. Intervertebral disk disease of the spine. 8. Chronic diastolic congestive heart failure and acute history of depression. 9. Benign prostatic hypertrophy. 10. Vitamin D deficiency. PAST SURGICAL HISTORY: 1. Reported as lower back surgery, diskectomy. 2. Carpal tunnel release of the right arm. 3. Cataract extraction with lens implantation bilaterally. SOCIAL HISTORY: The patient stated he is , lives at home. He has 3 children. The patient smoking started at younger age up to 2 packs of cigarettes per day until 1978. He has worked in the [employer] for approximately 40 years. FAMILY HISTORY: Reported in the father at age 62. He had complications of COPD/emphysema. Mother at age 6767 years old with complications related to acute myocardial infarction. HOME MEDICATIONS: Listed use of Rocaltrol, allopurinol, Breo Ellipta, ProAir HFA inhaler, Neurontin, citalopram, hydralazine, [place], labetalol, MS Contin, Flomax, torsemide, sliding insulin coverage, 70/30 insulin mixture 20 units b.i.d., and other p.r.n. medication use. DRUG ALLERGIES: 1. THE PATIENT WAS NOTED ALLERGIES TO THE KEFLEX. 2. ____ DYE. 0 PHYSICAL EXAMINATION: GENERAL: This is a 71-year-old white male who has been currently sitting on the chair for the patient in his room. Height, the patient recorded 5 feet 10 inches, weight of 148 kg, BMI 52.9 without any acute distress. VITAL SIGNS: For the patient which was recorded of the highest temperature 100.1 degrees Fahrenheit on the 8th and otherwise the patient noted to be afebrile. The respiratory rate ranged between 18-20, heart rate 108-76, blood pressure 125/53-126/50. Intake in the last 24 hours 1800 mL, output 840 mL without Bee catheter. Pulse oxygen saturation on 3 liters nasal cannula 97% saturation. HEENT: Head is atraumatic. Eyes, nonicterus. NECK: Supple. Posterior pharyngeal space was noted, severely decreased. Oral mucosa moist. CARDIOVASCULAR: S1, S2 audible. LUNGS: The patient was noted with moderate reduction in the breath sounds bilaterally. ABDOMEN: Soft. Severely obese. Bowel sounds present. EXTREMITIES: Showed chronic venous stasis pigmentation in part of the extremities, has been wrapped with a bandage. CENTRAL NERVOUS SYSTEM: Cranial nerves 2-12 intact. [place], [place] REPORT OF CONSULTATION NAME: JOSH HOWARD UNIT #: [id number] ROOM: [facility] DOCTOR: FRANCESCA ARTEAGA MD,[facility] BIRTHDATE: [birth year] MUSCULOSKELETAL: No deformities. LABORATORY DATA: CBC on this patient on admission, 02/25/2017, hemoglobin 8.6, hematocrit 29.6, WBC count normal, platelet count normal. PT/INR 1.0. On admission, 02/25/2017, CMP: BUN 92, creatinine 2.06, glucose 151, albumin 2.7. CBC on 02/27/2017 for the patient's hemoglobin 9.1, hematocrit 30.6, platelet count 193,000. The renal function panel on 02/27/2017, BUN 82, creatinine 2.57, glucose 125. Arterial blood gas of the patient, pH of 7.34, pCO2 of 46, pO2 of 60 on 2 liter nasal cannula that was done yesterday as I ordered. CBC this morning, hemoglobin 8.3, hematocrit 27.6, WBC count 12.6 with platelet count was normal. The renal function panel: BUN 82 and creatinine 2.44. Sputum culture on 02/27/2017 for the patient noted positive for Moraxella catarrhalis with beta-lactamase positive species. Chest x-ray of the patient, which was obtained for the patient yesterday for the patient showed no acute pulmonary infiltration. IMPRESSION: 1. The patient who had been currently admitted to the hospital with a diagnosis hypoglycemia, general body weakness, and fatigue noted increased coughing, currently noted with finding consistent with acute bacterial bronchitis with gram-negative infection with Moraxella catarrhalis. 2. History of chronic kidney disease, superimposed for this patient with chronic kidney disease most likely related to prerenal azotemia with possibility of gastrointestinal bleeding has been considered, which has been investigated by GI services. 3. History of morbid obesity. 4. Strong suspicion of obstructive sleep apnea disorder for current body habitus. 5. Type 2 diabetes mellitus. PLAN OF TREATMENT: Continue physical therapy and occupation therapy. The patient has been ordered the Levaquin for the patient to cover the current gram-negative organism from Moraxella catarrhalis for this patient with beta-lactamase positive species. The Levaquin will be given orally. Bronchodilators, the patient had mobilized secretions as well. Additional treatment changes for the patient to be done for the patient based on the progression of the illness. Other supportive therapy, plan of management to be continued as well. Additional treatment changes will be made based on progression of the illness. Thanks for allowing me to participate in the care of this patient. [place], [place] REPORT OF CONSULTATION NAME: JOSH HOWARD UNIT #: [id number] ROOM: [facility] DOCTOR: GREGORY ZARATE MD BIRTHDATE: [birth year] GREGORY MA MD CM:CONSTR:REPORT OF CONSULTATION 1501 03/01/17 0409 interface
--- NOTE | ~2017-02-25 | PR ---
[place], [place] PROGRESS NOTE NAME: JOSH HOWARD UNIT #: [id number] ROOM: 404 DOCTOR: VIRGINIA BEAVERS,ALEKS Almanzar BIRTHDATE: [birth year] DOS: 02/28/2017 SUBJECTIVE: The patient is feeling slightly better today. OBJECTIVE: VITAL SIGNS: Blood pressure 125/53, heart rate of 76 beats per minute, breathing 20 times per minute, temperature range between 98.1 to 100.8 rectally. IMPRESSION AND PLAN: 1. Sputum cultures growing Moraxella catarrhalis, covered by Levaquin, which patient is presently taking. 2. Acute over chronic kidney failure, stage 4 disease, being followed by Nephrology. BUN and creatinine and serum electrolytes being monitored on daily basis. 3. Morbid obesity and adult failure to thrive. The patient working with dietary. 4. Adult failure to thrive. The patient working with physical therapy. 5. Benign essential hypertension with controlled blood pressures with treatment. 6. Acute gastrointestinal bleed for which the patient is being followed by Dr. Bruce. Colonoscopy showed stool retention, so he is being reprepped for a repeat procedure. Hemoglobin is at 12.6. ALEKS COLEMAN MD CM:SAMMY [id number] ALEKS COLEMAN MD 03/01/17 0331 interface
--- NOTE | ~2017-02-25 | PR ---
[place], [place] PROGRESS NOTE NAME: JOSH HOWARD UNIT #: [id number] ROOM: 404 DOCTOR: POOJA FLANNERY MD BIRTHDATE: [birth year] DOS: 02/27/2017 SUBJECTIVE: The patient is lying flat, continues to complain of chronic back pain. No acute events since seen yesterday. He had an ABG done earlier, which was showing mild low oxygen levels of 60, PaO2 of 60 with 2 liters nasal cannula, pH and CO2 was mildly elevated. Hemoglobin seems stable. Creatinine is slightly down to 2.57 from 3. His chest radiograph was done earlier today and was negative for any acute findings. OBJECTIVE: VITAL SIGNS: 98.1, 77, 20, 122/50, 99%. GENERAL: Awake, alert, no acute distress, pleasant, mood and affect, lying comfortably supine. NECK: Large thick neck and almost phenotype. CARDIOVASCULAR: Decrease lung sounds, notable rhonchi, mild upper airway constrictions. ABDOMEN: Soft. Heart sounds are regular without audible rub. EXTREMITIES: Without cyanosis or clubbing. There is some dependent anasarca and edema present. LABORATORIES AND DIAGNOSTICS: ABG was reviewed above. White blood cell count 8.3, hemoglobin 9.1, platelets 193. Sodium 142, potassium 4.6, chloride 108, bicarb 26, BUN 82, creatinine 2.57, glucose 125, calcium 9.1, phosphorus 4.3, magnesium 2.3, albumin 2.6. X-rays were personally reviewed as above. ASSESSMENT AND PLAN: Possible acute kidney injury on chronic kidney disease stage 4. Overall, the patient seems to be stable or improving at this time. Can continue to hold off of IV fluids and continue on oral diuretic as tolerated. Volume and blood pressures are otherwise acceptably controlled. Continue to monitor intake and output, is able to follow for further acute bleeding and hemoglobin seems to be stable for it's possible GI bleed and anemia. Metabolic bone disease parameters are acceptable from calcium and phosphorus standpoint. His low albumin levels possibly from chronic inflammation. He has a history of diabetes and if this is acceptably controlled. He is likely a chronic CO2 retainer and mild respiratory acidosis, stable. Dr. Sanchez can follow up. [place], [place] PROGRESS NOTE NAME: JOSH HOWARD UNIT #: [id number] ROOM: [facility] DOCTOR: POOJA FLANNERY MD BIRTHDATE: [birth year] POOJA FLANNERY MD CM:PNTRANS 1618 POOJA FLANNERY MD 02/28/17 0937 interface
--- NOTE | ~2017-02-25 | WRIGHTHP ---
[place], [place] PATIENT HISTORY AND PHYSICAL EXAM NAME: [facility]H HOWARD [id number] UNIT #: [id number] ROOM: 404 DOCTOR: EVA KOENIG MD BIRTHDATE: [birth year] DOS: 02/25/2017 HISTORY OF PRESENT ILLNESS: This patient was [facility] yesterday in the [facility]. He was found to have bright red blood per rectum and he looked quite uncomfortable and tired and weak and was hypoglycemic, so was sent out. He was sent to the Emergency Room where he continued to have bleeding per rectum, so was admitted. He denies having any chest pains or palpitations, does not have any abdominal pain. He has a lot of back pain and he has not received any pain medication this morning. PAST MEDICAL HISTORY: Significant for: 1. Stasis dermatitis of the lower extremities. 2. Chronic renal failure. 3. Type 2 diabetes mellitus, insulin-dependent. 4. Diastolic congestive heart failure by history. 5. Morbid obesity. 6. Chronic back pain. 7. Benign prostatic hypertrophy. 8. Benign hypertension. MEDICATIONS: That he is currently on are ProAir inhaler, Breo Ellipta twice a day, allopurinol 100 b.i.d., Rocaltrol 0.25 mcg daily, vitamin D 1000 units daily, citalopram 40 daily, gabapentin 300 at bedtime, hydralazine 75 three times a day, [place] 5 q. 4 hours p.r.n., labetalol 400 twice a day, MS Contin 15 b.i.d., tamsulosin 0.4 mg daily, torsemide 20 daily, insulin sliding scale 70/30 20 units in the morning, 20 in the evening. SOCIAL HISTORY: Nonsmoker, does not use any alcohol. He is currently a resident of [place]. PHYSICAL EXAMINATION: GENERAL: The patient is awake and alert and oriented. VITAL SIGNS: Blood pressure is 164/48, pulse of 80, respirations 22, temperature 97.6. LUNGS: Clear. HEART: Regular. ABDOMEN: Obese, soft, some diffuse tenderness present. EXTREMITIES: Without any edema. ASSESSMENT AND PLAN: 1. Gastrointestinal bleed. The patient is ordered endoscopy and colonoscopy. Dr. Bruce has been consulted. 2. Stage IV renal failure with some worsening of BUN. It is possibly from the gastrointestinal bleed, on slow IV hydration. Nephrology consultation was obtained. 3. Benign hypertension, controlled. 4. Chronic stasis dermatitis with poorly healing wounds. Bactroban to be ordered. 5. Chronic back pain. Morphine and Percocet are continued. [place], [place] PATIENT HISTORY AND PHYSICAL EXAM NAME: JOSH HOWARD UNIT #: [id number] ROOM: [facility] DOCTOR: EVA KOENIG MD BIRTHDATE: [birth year] EVA KOENIG MD CM:HISPHYS:PATIENT HISTORY AND PHYSICAL EXAMINATION 9 2 EVA KOENIG MD 02/26/17912 interface
--- NOTE | ~2017-02-25 | PR ---
[place], [place] PROGRESS NOTE NAME: JOSH HOWARD UNIT #: [id number] ROOM: 404 DOCTOR: EVA KOENIG MD BIRTHDATE: [birth year] DOS: 03/01/2017 SUBJECTIVE: The patient is doing fine without any complaints other than his cough. His back pain continues, but he takes multiple pain medications. The colonoscopy that was done on Wednesday was unsuccessful because the prep was poor and Dr. Bruce wants to do it as an outpatient. This morning, the patient is sitting up in his chair, has some mild wheezing noted. VITAL SIGNS: Blood pressure is 135/53, pulse of 74, respirations 20, temperature 97.7. LUNGS: Diminished breath sounds, a few scattered wheezes heard. HEART: Regular. ABDOMEN: Obese. EXTREMITIES: Chronic lymphedema with stasis dermatitis, a poorly healing wound of the right pretibial area, which is draining minimal amount of blood. LABORATORY DATA: WBC count is 10.5, hemoglobin 8.5, hematocrit 28.6, platelets 182. Renal function, glucose 107, BUN 84, creatinine 2.37. Sodium 139, potassium 4.6, chloride 105, bicarbonate 27. Sputum culture, normal ginger with Moraxella catarrhalis. ASSESSMENT AND PLAN: 1. The patient presents with gastrointestinal bleed. Again, colonoscopy did not give any clear-cut results. The patient will be scheduled for an endoscopy and colonoscopy as an outpatient. 2. Stage 4 renal failure with gastrointestinal bleed resulting in prerenal azotemia, which is back to his baseline. Continue his home medications. The allopurinol dosage has been cut back. 3. Benign hypertension, controlled. 4. Poorly healing wound on the right leg. Bactroban ointment has been prescribed. 5. Chronic back pain. Continue pain medications. 6. Acute bronchitis with Moraxella catarrhalis, continue Levaquin at the longterm. The patient to be discharged to [facility] today. 7. Adult failure to thrive, which request PT, OT. 8. Type 2 diabetes mellitus with hypoglycemia, dosage of the insulin will be cut back. [place], [place] PROGRESS NOTE NAME: JOSH HOWARD UNIT #: [id number] ROOM: 404 DOCTOR: EVA KOENIG MD BIRTHDATE: [birth year] EVA KOENIG MD CM:PNTRANS [id number] [phone] EVA KOEING MD 03/01/17 1318 interface
[2017-02-25 09:50] VITALS: BP 140/90
[~2017-02-25 09:50] MED LIST changes: +AMOXICILLIN500 M2 PO; +APRESOLINE25 MG PO; -HYDRALAZINE10 MG PO; +NORCO 5-325 TA1 EACH PO; +PROAIR HFA8.5 GM INH; -TORSEMIDE100 MG PO; +TORSEMIDE20 MG PO; +TYLENOL EXTRA500 M2 PO; +XANAX0.25 MG PO
[2017-02-25 10:36] LABS: BASO % 0.3 % (0.0-1.0); EOS # 0.2 10*3/uL (0.0-0.4); EOS % 2.6 % (1.0-4.0); HEMATOCRIT 29.6 % (42.0-52.0); HEMOGLOBIN 8.6 g/dl (14.0-18.0); LYMPH # 0.9 10*3/uL (1.3-4.4); LYMPH % 11.9 % (27.0-41.0); MEAN CORPUSCULAR HGB 29.1 pg (27.0-31.0); MEAN CORPUSCULAR HGB CONC 29.1 g/dl (33.0-37.0); MEAN PLATELET VOLUME 10.9 fl (9.6-12.3); MONO # 0.5 10*3/uL (0.1-1.0); MONO % 6.6 % (3.0-9.0); NEUT # 5.8 10*3/uL (2.3-7.9); NEUT % 78.1 % (47.0-73.0); PLATELET COUNT AUTOMATED 197 10*3/uL (130-400); RED BLOOD COUNT 2.96 10*6/uL (4.50-5.90); RED CELL DISTRI WIDTH 15.8 % (0-14.5); WHITE BLOOD COUNT 7.4 10*3/uL (4.8-10.8)
[2017-02-25 10:51] LABS: ALBUMIN 2.7 gm/dl (3.1-4.5); CREATININE 3.06 mg/dL (0.70-1.30); POTASSIUM 4.9 mmol/L (3.5-5.1); TOTAL PROTEIN 6.5 gm/dL (6.4-8.2)
[2017-02-25 12:19] VITALS: BP 123/62
[2017-02-25 12:48] VITALS: BP 132/66
[2017-02-25] MEDS ORDERED: BREO ELLIPTA 11 EACH INH (13:41)
[2017-02-25] MEDS ORDERED: VITAMIN D31000 UNI1 PO (13:43)
[2017-02-25] MEDS ORDERED: NEURONTIN300 MG PO (13:45)
[2017-02-25] MEDS ORDERED: LIDODERM1 EACH T (13:47)
[2017-02-25] MEDS ORDERED: PROVENTIL HFA6.7 GM INH (14:07)
[2017-02-25 16:00] VITALS: BP 138/41
[2017-02-26] VITALS (7 sets, daily range): BP systolic 119–167; BP diastolic 48–86
[2017-02-26 07:30] LABS: BASO % 0.4 % (0.0-1.0); EOS # 0.1 10*3/uL (0.0-0.4); EOS % 1.1 % (1.0-4.0); HEMATOCRIT 30.8 % (42.0-52.0); HEMOGLOBIN 9.1 g/dl (14.0-18.0); LYMPH # 0.6 10*3/uL (1.3-4.4); LYMPH % 6.3 % (27.0-41.0); MEAN CELL VOLUME 100.7 fl (80.0-94.0); MEAN CORPUSCULAR HGB 29.7 pg (27.0-31.0); MEAN CORPUSCULAR HGB CONC 29.5 g/dl (33.0-37.0); MEAN PLATELET VOLUME 12.2 fl (9.6-12.3); MONO # 0.7 10*3/uL (0.1-1.0); NEUT # 8.5 10*3/uL (2.3-7.9); NEUT % 84.7 % (47.0-73.0); PLATELET COUNT AUTOMATED 219 10*3/uL (130-400); RED BLOOD COUNT 3.06 10*6/uL (4.50-5.90); RED CELL DISTRI WIDTH 15.4 % (0-14.5)
[2017-02-26 07:32] LABS: POTASSIUM 4.8 mmol/L (3.5-5.1)
[2017-02-26 07:37] LABS: CREATININE 2.95 mg/dL (0.70-1.30)
[2017-02-27] VITALS: BP 131/57
[2017-02-27 06:07] LABS: BASO % 0.4 % (0.0-1.0); EOS % 0.5 % (1.0-4.0); HEMATOCRIT 30.6 % (42.0-52.0); HEMOGLOBIN 9.1 g/dl (14.0-18.0); LYMPH # 0.7 10*3/uL (1.3-4.4); LYMPH % 7.8 % (27.0-41.0); MEAN CELL VOLUME 100.7 fl (80.0-94.0); MEAN CORPUSCULAR HGB 29.9 pg (27.0-31.0); MEAN CORPUSCULAR HGB CONC 29.7 g/dl (33.0-37.0); MEAN PLATELET VOLUME 11.6 fl (9.6-12.3); MONO # 0.6 10*3/uL (0.1-1.0); MONO % 7.5 % (3.0-9.0); NEUT # 6.9 10*3/uL (2.3-7.9); NEUT % 83.3 % (47.0-73.0); PLATELET COUNT AUTOMATED 193 10*3/uL (130-400); RED BLOOD COUNT 3.04 10*6/uL (4.50-5.90); RED CELL DISTRI WIDTH 15.5 % (0-14.5); WHITE BLOOD COUNT 8.3 10*3/uL (4.8-10.8)
[2017-02-27 06:25] LABS: ALBUMIN 2.6 gm/dl (3.1-4.5); CREATININE 2.57 mg/dL (0.70-1.30); PHOSPHOROUS 4.3 mg/dL (2.5-4.9); POTASSIUM 4.6 mmol/L (3.5-5.1)
[2017-02-27 08:00] VITALS: BP 128/68
[2017-02-27 15:11] LABS: ABG BASE EXCESS -0.2 mmol/L (-2.0-2.0); ABG HCO3 25.1 mmol/l (22-26); ABG O2 SATURATION 89.7 % (95-97); ARTERIAL BLOOD GAS PCO2 46.7 mmHg (35-45); ARTERIAL BLOOD GAS PH 7.349 (7.35-7.45); ARTERIAL BLOOD GAS PO2 60.4 mmHg (80-90)
[2017-02-27 16:00] VITALS: BP 122/50
[2017-02-27 20:00] VITALS: BP 124/43
[2017-02-27 21:30] VITALS: BP 126/50
[2017-02-28 06:22] LABS: BASO % 0.3 % (0.0-1.0); EOS % 0.2 % (1.0-4.0); HEMATOCRIT 27.6 % (42.0-52.0); HEMOGLOBIN 8.3 g/dl (14.0-18.0); LYMPH # 0.7 10*3/uL (1.3-4.4); LYMPH % 5.6 % (27.0-41.0); MEAN CELL VOLUME 100.7 fl (80.0-94.0); MEAN CORPUSCULAR HGB 30.3 pg (27.0-31.0); MEAN CORPUSCULAR HGB CONC 30.1 g/dl (33.0-37.0); MEAN PLATELET VOLUME 12.4 fl (9.6-12.3); MONO # 0.7 10*3/uL (0.1-1.0); MONO % 5.8 % (3.0-9.0); NEUT % 87.6 % (47.0-73.0); PLATELET COUNT AUTOMATED 185 10*3/uL (130-400); RED BLOOD COUNT 2.74 10*6/uL (4.50-5.90); RED CELL DISTRI WIDTH 15.5 % (0-14.5); WHITE BLOOD COUNT 12.6 10*3/uL (4.8-10.8)
[2017-02-28 06:45] LABS: ALBUMIN 2.3 gm/dl (3.1-4.5); POTASSIUM 4.6 mmol/L (3.5-5.1)
[2017-02-28 06:47] LABS: CREATININE 2.44 mg/dL (0.70-1.30)
[2017-02-28 08:00] VITALS: BP 125/53
[2017-02-28 16:00] VITALS: BP 135/65
[2017-02-28 20:00] VITALS: BP 138/57
[2017-02-28 22:00] VITALS: BP 140/53
[2017-03-01] VITALS: BP 135/53
[2017-03-01 06:28] LABS: BASO % 0.2 % (0.0-1.0); EOS # 0.3 10*3/uL (0.0-0.4); EOS % 2.8 % (1.0-4.0); HEMATOCRIT 28.6 % (42.0-52.0); HEMOGLOBIN 8.5 g/dl (14.0-18.0); LYMPH # 0.8 10*3/uL (1.3-4.4); LYMPH % 7.7 % (27.0-41.0); MEAN CELL VOLUME 100.4 fl (80.0-94.0); MEAN CORPUSCULAR HGB 29.8 pg (27.0-31.0); MEAN CORPUSCULAR HGB CONC 29.7 g/dl (33.0-37.0); MEAN PLATELET VOLUME 12.1 fl (9.6-12.3); MONO # 0.7 10*3/uL (0.1-1.0); MONO % 6.6 % (3.0-9.0); NEUT # 8.6 10*3/uL (2.3-7.9); NEUT % 81.9 % (47.0-73.0); PLATELET COUNT AUTOMATED 182 10*3/uL (130-400); RED BLOOD COUNT 2.85 10*6/uL (4.50-5.90); RED CELL DISTRI WIDTH 15.2 % (0-14.5); WHITE BLOOD COUNT 10.5 10*3/uL (4.8-10.8)
[2017-03-01 06:43] LABS: ALBUMIN 2.3 gm/dl (3.1-4.5); CREATININE 2.37 mg/dL (0.70-1.30); POTASSIUM 4.6 mmol/L (3.5-5.1)
[2017-03-01 08:00] VITALS: BP 138/51
[2017-03-01] MEDS ORDERED: DUONEB 3 MG/3 ML3 M1 NEB (08:15)
[2017-03-01] MEDS ORDERED: LEVAQUIN500 M2 PO (08:15)
[2017-03-01] MEDS ORDERED: ALLOPURINOL100 MG PO (08:15)
[2017-03-01] MEDS ORDERED: NOVOLIN 70100 UNIT/1 SQ ×2 (08:15)
== END 2017-03-01 15:15 | DRG 377 ==
LOC: ED 09:50 → EDHOLD 11:34 → 4E 11:34
PROVIDERS: Emergency Medicine; Internal Medicine; Internal Medicine Critical Care Medicine; ADMIT Internal Medicine
PROC: 0DJD8ZZ Inspection of Lower Intestinal Tract, Via Natural or Artificial Opening Endoscopic (ICD-10-PCS; principal; 2017-02-26)
DX: K92.2 Gastrointestinal hemorrhage, unspecified (principal); N17.0 Acute kidney failure with tubular necrosis; E43 Unspecified severe protein-calorie malnutrition; N18.4 Chronic kidney disease, stage 4 (severe); I13.0 Hypertensive heart and chronic kidney disease with heart failure and stage 1 through stage 4 chronic kidney disease, or unspecified chronic kidney disease; I50.42 Chronic combined systolic (congestive) and diastolic (congestive) heart failure; Z68.43 Body mass index [BMI] 50.0-59.9, adult; N40.0 Benign prostatic hyperplasia without lower urinary tract symptoms; G89.29 Other chronic pain; F32.9 Major depressive disorder, single episode, unspecified; M54.9 Dorsalgia, unspecified; E11.22 Type 2 diabetes mellitus with diabetic chronic kidney disease; F41.1 Generalized anxiety disorder; M10.9 Gout, unspecified; D53.9 Nutritional anemia, unspecified; E66.01 Morbid (severe) obesity due to excess calories; Z96.1 Presence of intraocular lens; L30.9 Dermatitis, unspecified; I87.2 Venous insufficiency (chronic) (peripheral); S80.811A Abrasion, right lower leg, initial encounter; E55.9 Vitamin D deficiency, unspecified; E11.65 Type 2 diabetes mellitus with hyperglycemia; J20.9 Acute bronchitis, unspecified; B96.89 Other specified bacterial agents as the cause of diseases classified elsewhere; E11.649 Type 2 diabetes mellitus with hypoglycemia without coma; R62.7 Adult failure to thrive; Z87.891 Personal history of nicotine dependence; Z88.1 Allergy status to other antibiotic agents; Z91.041 Radiographic dye allergy status; Z79.899 Other long term (current) drug therapy; Z86.73 Personal history of transient ischemic attack (TIA), and cerebral infarction without residual deficits; Z83.6 Family history of other diseases of the respiratory system; Z82.49 Family history of ischemic heart disease and other diseases of the circulatory system; Z83.3 Family history of diabetes mellitus; Z80.9 Family history of malignant neoplasm, unspecified; Z79.4 Long term (current) use of insulin; X58.XXXA Exposure to other specified factors, initial encounter; Y93.89 Activity, other specified; Y92.89 Other specified places as the place of occurrence of the external cause; Y99.8 Other external cause status

== ENCOUNTER → 2017-05-18 | Outpatient (CLI) | payer OTHER ==
[~2017-05-18] MED LIST changes: +BREO ELLIPTA 11 EACH INH; +DUONEB 3 MG/3 ML3 M1 NEB; +LEVAQUIN500 M2 PO; +LIDODERM1 EACH T; +PROVENTIL HFA6.7 GM INH; +VITAMIN D31000 UNI1 PO
--- NOTE | ~2017-05-18 | ST ---
[place], [place] EXERCISE STRESS TEST REPORT NAME: JOSH HOWARD UNIT #: [id number] ROOM: DOCTOR: RAMÍREZ STEEL MD BIRTHDATE: [birth year] DOS: 05/18/2017 LEXISCAN PORTION OF THE LEXISCAN CARDIOLITE Baseline cardiogram, sinus rhythm with nonspecific ST-T changes, 0.4 mg Lexiscan, duration of 10 seconds. With Lexiscan, no new EKG changes. The patient had no chest discomfort, did have some shortness of breath. Blood pressure and heart rate response was normal. FINAL IMPRESSION: No EKG changes with Lexiscan. No chest pain with Lexiscan. No dysrhythmia with Lexiscan. Blood pressure and heart rate response was normal. Nuclear images will be reported separately. RAMÍREZ STEEL MD CM:STRESS:EXERCISE STRESS TEST REPORT [id number] RAMÍREZ STEEL MD
== END | disposition home or self-care (01) ==
LOC: CARD 01:35
DX: R94.31 Abnormal electrocardiogram [ECG] [EKG] (principal); R53.81 Other malaise

== ENCOUNTER 2018-04-25 20:38 | Emergency (ER) | payer OTHER ==
[~2018-04-25] VITALS: Ht 172.7 cm; Wt 110.7 kg
--- NOTE | ~2018-04-25 | EKG ---
[place], [place] ELECTROCARDIOGRAM REPORT NAME: JOSH HOWARD UNIT #: [id number] ROOM: DOCTOR: EPIPHNATE DRAFT REPORT BIRTHDATE: [birth year] [facility] Test Date: 2018-04-25 Test Time: 21:45:42 Pat Name: JOSH HOWARD Department: Room: Gender: M Hospital Coder: Luisa Padilla : 1945 Requested By: TRICIA MUSTAFA Order Number: [id number] Reading MD: Yuri Floyd MD Measurements Intervals [place] Rate: 63 P: -75 WI: 207 QRS: -49 QRSD: 127 T: 1 QT: 475 QTc: 487 Interpretive Statements Sinus or ectopic atrial rhythm Atrial premature complex Nonspecific IVCD with LAD Left ventricular hypertrophy Anterior ST elevation, probably due to LVH Baseline wander in lead(s) V6 Electronically Signed On 04-27-2018 8:22:05 PST by Yuri Floyd MD CM:EKGRPT:ELECTROCARDIOGRAM REPORT [id number] TRICIA DAHL DRAFT REPORT TRICIA MUSTAFA DO
[2018-04-25 21:45] LABS: BASO % 0.2 % (0.0-1.0); EOS % 0.1 % (1.0-4.0); HEMATOCRIT 34.4 % (42.0-52.0); HEMOGLOBIN 10.7 g/dl (14.0-18.0); LYMPH # 0.3 10*3/uL (1.3-4.4); LYMPH % 2.7 % (27.0-41.0); MEAN CELL VOLUME 103.9 fl (80.0-94.0); MEAN CORPUSCULAR HGB 32.3 pg (27.0-31.0); MEAN CORPUSCULAR HGB CONC 31.1 g/dl (33.0-37.0); MEAN PLATELET VOLUME 11.7 fl (9.6-12.3); MONO # 0.8 10*3/uL (0.1-1.0); MONO % 6.8 % (3.0-9.0); NEUT # 10.9 10*3/uL (2.3-7.9); NEUT % 89.5 % (47.0-73.0); PLATELET COUNT AUTOMATED 156 10*3/uL (130-400); RED BLOOD COUNT 3.31 10*6/uL (4.50-5.90); RED CELL DISTRI WIDTH 14.4 % (0-14.5); WHITE BLOOD COUNT 12.2 10*3/uL (4.8-10.8)
[2018-04-25 22:06] LABS: ALBUMIN 2.5 gm/dl (3.1-4.5); CREATININE 2.38 mg/dL (0.70-1.30); POTASSIUM 4.2 mmol/L (3.5-5.1); TOTAL PROTEIN 6.1 gm/dL (6.4-8.2)
[2018-04-25 22:07] LABS: TROPONIN I 0.043 ng/ml (<0.045)
[2018-04-25 23:00] VITALS: BP 130/39
== END 2018-04-26 00:33 | disposition home or self-care (01) ==
LOC: ED 20:38
PROVIDERS: Emergency Medicine
DX: R53.1 Weakness (principal); R53.83 Other fatigue; R07.9 Chest pain, unspecified; G89.29 Other chronic pain; E11.9 Type 2 diabetes mellitus without complications; I11.0 Hypertensive heart disease with heart failure; I50.32 Chronic diastolic (congestive) heart failure; E66.01 Morbid (severe) obesity due to excess calories; Z87.891 Personal history of nicotine dependence; Z86.73 Personal history of transient ischemic attack (TIA), and cerebral infarction without residual deficits

== ENCOUNTER 2019-05-17 16:22 | Inpatient (IN) | payer OTHER, MEDICAID ==
[~2019-05-17] VITALS: Ht 177.8 cm; Wt 89.5 kg
[2019-05-17 16:26] VITALS: BP 118/68
[2019-05-17 18:00] LABS: HEMATOCRIT 38.1 % (42.0-52.0); HEMOGLOBIN 11.8 g/dl (14.0-18.0); MEAN CELL VOLUME 103.8 fl (80.0-94.0); MEAN CORPUSCULAR HGB 32.2 pg (27.0-31.0); MEAN PLATELET VOLUME 11.4 fl (9.6-12.3); PLATELET COUNT AUTOMATED 121 10*3/uL (130-400); RED BLOOD COUNT 3.67 10*6/uL (4.50-5.90)
[2019-05-17 18:08] LABS: ACT PARTIAL THROMBO TIME 25.7 SECONDS (20.0-32.1)
[2019-05-17 18:15] LABS: ALBUMIN 3.1 gm/dl (3.1-4.5); ALKALINE PHOSPHATASE 264 U/L (45-117); BUN 18 mg/dl (7-24); CHLORIDE 103 mmol/L (98-107); CREATININE 1.92 mg/dL (0.70-1.30); LIPASE 67 U/L (73-393); POTASSIUM 4.6 mmol/L (3.5-5.1); SGOT/AST 244 IU/L (3-35); SGPT/ALT 131 U/L (12-78); SODIUM 138 mmol/L (136-145); TOTAL PROTEIN 6.9 gm/dL (6.4-8.2)
[2019-05-17 18:18] LABS: TROPONIN I < 0.015 ng/ml (<0.045)
[2019-05-17 18:30] LABS: BURR CELLS FEW; OVALOCYTES FEW; PLATELET SUFFICIENCY LOW (NORMAL); TOTAL CELLS COUNTED 100 #CELLS
[2019-05-17 19:19] VITALS: BP 131/49
[2019-05-17 20:32] VITALS: BP 135/56
[2019-05-17 21:00] VITALS: BP 107/42
[2019-05-17] MEDS ORDERED: CITALOPRAM HYDR40 MG PO (22:18)
[2019-05-17] MEDS ORDERED: RENVELA800 MG PO (22:21)
[2019-05-18] VITALS (10 sets, daily range): BP systolic 94–119; BP diastolic 36–58
[2019-05-18 06:36] LABS: HEMATOCRIT 37.4 % (42.0-52.0); HEMOGLOBIN 11.5 g/dl (14.0-18.0); MEAN CELL VOLUME 104.5 fl (80.0-94.0); MEAN CORPUSCULAR HGB 32.1 pg (27.0-31.0); MEAN CORPUSCULAR HGB CONC 30.7 g/dl (33.0-37.0); MEAN PLATELET VOLUME 12.2 fl (9.6-12.3); PLATELET COUNT AUTOMATED 108 10*3/uL (130-400); RED BLOOD COUNT 3.58 10*6/uL (4.50-5.90); RED CELL DISTRI WIDTH 14.4 % (0-14.5); WHITE BLOOD COUNT 20.8 10*3/uL (4.8-10.8)
[2019-05-18 06:52] LABS: ALBUMIN 2.8 gm/dl (3.1-4.5); CREATININE 2.78 mg/dL (0.70-1.30); PHOSPHOROUS 3.7 mg/dL (2.5-4.9); POTASSIUM 4.9 mmol/L (3.5-5.1); TOTAL PROTEIN 6.3 gm/dL (6.4-8.2)
[2019-05-18 06:59] LABS: THYROID STIM HORMONE (HS) 1.87 uIU/ml (0.358-4.75)
[2019-05-18 07:43] LABS: VITAMIN D, 25-HYDROXY 28.9 ng/mL (30-100)
[2019-05-18 07:48] LABS: OVALOCYTES FEW; PLATELET SUFFICIENCY LOW (NORMAL); POLYCHROMASIA SLIGHT; TARGET CELLS FEW; TOTAL CELLS COUNTED 100 #CELLS; TOXIC GRANULATION SLIGHT; VACUOLATION OF NEUTROPHILS SLIGHT
[2019-05-19] VITALS (9 sets, daily range): BP systolic 95–132; BP diastolic 47–59
[2019-05-19 06:28] LABS: HEMATOCRIT 36.5 % (42.0-52.0); HEMOGLOBIN 11.3 g/dl (14.0-18.0); MEAN CELL VOLUME 102.5 fl (80.0-94.0); MEAN CORPUSCULAR HGB 31.7 pg (27.0-31.0); MEAN PLATELET VOLUME 12.8 fl (9.6-12.3); PLATELET COUNT AUTOMATED 104 10*3/uL (130-400); RED BLOOD COUNT 3.56 10*6/uL (4.50-5.90); RED CELL DISTRI WIDTH 14.6 % (0-14.5); WHITE BLOOD COUNT 16.6 10*3/uL (4.8-10.8)
[2019-05-19 07:02] LABS: ALBUMIN 2.6 gm/dl (3.1-4.5); CREATININE 3.9 mg/dL (0.70-1.30); PHOSPHOROUS 5.3 mg/dL (2.5-4.9); POTASSIUM 5.6 mmol/L (3.5-5.1); TOTAL PROTEIN 6.4 gm/dL (6.4-8.2)
[2019-05-19 07:56] LABS: BURR CELLS FEW; OVALOCYTES FEW; PLATELET SUFFICIENCY LOW (NORMAL); TOTAL CELLS COUNTED 100 #CELLS; TOXIC GRANULATION SLIGHT; VACUOLATION OF NEUTROPHILS SLIGHT
[2019-05-20] VITALS: BP 136/54
[2019-05-20 06:17] LABS: HEMATOCRIT 35.1 % (42.0-52.0); HEMOGLOBIN 10.9 g/dl (14.0-18.0); MEAN CELL VOLUME 100.9 fl (80.0-94.0); MEAN CORPUSCULAR HGB 31.3 pg (27.0-31.0); MEAN CORPUSCULAR HGB CONC 31.1 g/dl (33.0-37.0); MEAN PLATELET VOLUME 13.2 fl (9.6-12.3); PLATELET COUNT AUTOMATED 99 10*3/uL (130-400); RED BLOOD COUNT 3.48 10*6/uL (4.50-5.90); RED CELL DISTRI WIDTH 14.9 % (0-14.5); WHITE BLOOD COUNT 12.2 10*3/uL (4.8-10.8)
[2019-05-20 06:18] LABS: ALBUMIN 2.4 gm/dl (3.1-4.5); CREATININE 3.07 mg/dL (0.70-1.30)
[2019-05-20 06:20] LABS: TOTAL PROTEIN 6.2 gm/dL (6.4-8.2)
[2019-05-20 06:38] LABS: POTASSIUM 4.6 mmol/L (3.5-5.1)
[2019-05-20 06:48] LABS: TOTAL CELLS COUNTED 100 #CELLS
[2019-05-20 06:52] LABS: PLATELET SUFFICIENCY LOW (NORMAL); POLYCHROMASIA SLIGHT
[2019-05-20 08:00] VITALS: BP 130/56
[2019-05-20 12:00] VITALS: BP 144/68
[2019-05-20 16:00] VITALS: BP 131/61
[2019-05-20 20:00] VITALS: BP 124/54
[2019-05-21] VITALS: BP 142/62
[2019-05-21 06:49] LABS: BASO % 0.3 % (0.0-1.0); EOS # 0.2 10*3/uL (0.0-0.4); EOS % 1.8 % (1.0-4.0); HEMATOCRIT 36.3 % (42.0-52.0); HEMOGLOBIN 11.3 g/dl (14.0-18.0); LYMPH # 0.9 10*3/uL (1.3-4.4); LYMPH % 9.3 % (27.0-41.0); MEAN CELL VOLUME 101.7 fl (80.0-94.0); MEAN CORPUSCULAR HGB 31.7 pg (27.0-31.0); MEAN CORPUSCULAR HGB CONC 31.1 g/dl (33.0-37.0); MEAN PLATELET VOLUME 12.9 fl (9.6-12.3); MONO # 0.4 10*3/uL (0.1-1.0); MONO % 4.5 % (3.0-9.0); NEUT # 7.8 10*3/uL (2.3-7.9); NEUT % 83.8 % (47.0-73.0); PLATELET COUNT AUTOMATED 96 10*3/uL (130-400); RED BLOOD COUNT 3.57 10*6/uL (4.50-5.90); RED CELL DISTRI WIDTH 14.8 % (0-14.5); WHITE BLOOD COUNT 9.3 10*3/uL (4.8-10.8)
[2019-05-21 07:02] LABS: ALBUMIN 2.1 gm/dl (3.1-4.5); CREATININE 3.87 mg/dL (0.70-1.30); POTASSIUM 5.1 mmol/L (3.5-5.1); TOTAL PROTEIN 6.2 gm/dL (6.4-8.2)
[2019-05-21 08:00] VITALS: BP 140/78
[2019-05-21 12:00] VITALS: BP 131/58
[2019-05-21 16:00] VITALS: BP 137/84
[2019-05-21 20:00] VITALS: BP 115/51; BP 124/61
[2019-05-22] VITALS: BP 128/52
[2019-05-22 07:42] LABS: BASO % 0.3 % (0.0-1.0); EOS # 0.3 10*3/uL (0.0-0.4); EOS % 4.3 % (1.0-4.0); HEMATOCRIT 34.5 % (42.0-52.0); HEMOGLOBIN 10.6 g/dl (14.0-18.0); LYMPH # 0.7 10*3/uL (1.3-4.4); LYMPH % 9.6 % (27.0-41.0); MEAN CELL VOLUME 102.7 fl (80.0-94.0); MEAN CORPUSCULAR HGB 31.5 pg (27.0-31.0); MEAN CORPUSCULAR HGB CONC 30.7 g/dl (33.0-37.0); MEAN PLATELET VOLUME 12.9 fl (9.6-12.3); MONO # 0.5 10*3/uL (0.1-1.0); MONO % 7.7 % (3.0-9.0); NEUT # 5.4 10*3/uL (2.3-7.9); NEUT % 77.7 % (47.0-73.0); PLATELET COUNT AUTOMATED 97 10*3/uL (130-400); RED BLOOD COUNT 3.36 10*6/uL (4.50-5.90); RED CELL DISTRI WIDTH 14.6 % (0-14.5); WHITE BLOOD COUNT 6.9 10*3/uL (4.8-10.8)
[2019-05-22 07:54] LABS: ALBUMIN 1.9 gm/dl (3.1-4.5); CREATININE 4.56 mg/dL (0.70-1.30); PHOSPHOROUS 5.4 mg/dL (2.5-4.9)
[2019-05-22 07:55] LABS: POTASSIUM 4.4 mmol/L (3.5-5.1)
[2019-05-22 08:00] VITALS: BP 120/50
[2019-05-22 12:00] VITALS: BP 150/56
[2019-05-22] MEDS ORDERED: Carafate1 GM/10 ML PO (15:02)
[2019-05-22] MEDS ORDERED: PROTONIX40 M1 PO (15:02)
[2019-05-22] MEDS ORDERED: VITAMIN D32000 UNI1 PO (15:02)
[2019-05-22] MEDS ORDERED: NATURE'S BLEND F1 MG PO (15:02)
== END 2019-05-22 16:44 | disposition home or self-care (01) | DRG 853 ==
LOC: ED 16:22 → EDHOLD 20:05 → 4E 20:05 → EDHOLD 20:16 → 4E 20:35
PROVIDERS: Emergency Medicine; Family Medicine; Internal Medicine; Internal Medicine Nephrology; Student in an Organized Health Care Education/Training Program; Surgery; ADMIT Family Medicine
PROC: 0FT44ZZ Resection of Gallbladder, Percutaneous Endoscopic Approach (ICD-10-PCS; principal; 2019-05-18)
PROC: 5A1D70Z Performance of Urinary Filtration, Intermittent, Less than 6 Hours Per Day (ICD-10-PCS; 2019-05-19)
PROC: 0F798DZ Dilation of Common Bile Duct with Intraluminal Device, Via Natural or Artificial Opening Endoscopic (ICD-10-PCS; 2019-05-19)
PROC: 5A1D70Z Performance of Urinary Filtration, Intermittent, Less than 6 Hours Per Day (ICD-10-PCS; 2019-05-22)
DX: A41.51 Sepsis due to Escherichia coli [E. coli] (principal); N18.6 End stage renal disease; K29.71 Gastritis, unspecified, with bleeding; I50.32 Chronic diastolic (congestive) heart failure; I13.2 Hypertensive heart and chronic kidney disease with heart failure and with stage 5 chronic kidney disease, or end stage renal disease; E44.0 Moderate protein-calorie malnutrition; K80.63 Calculus of gallbladder and bile duct with acute cholecystitis with obstruction; E86.0 Dehydration; R51 Headache; D69.6 Thrombocytopenia, unspecified; D72.810 Lymphocytopenia; D72.9 Disorder of white blood cells, unspecified; M10.9 Gout, unspecified; I87.2 Venous insufficiency (chronic) (peripheral); E87.5 Hyperkalemia; E66.01 Morbid (severe) obesity due to excess calories; E83.39 Other disorders of phosphorus metabolism; K57.90 Diverticulosis of intestine, part unspecified, without perforation or abscess without bleeding; D53.9 Nutritional anemia, unspecified; E11.22 Type 2 diabetes mellitus with diabetic chronic kidney disease; N40.0 Benign prostatic hyperplasia without lower urinary tract symptoms; F32.9 Major depressive disorder, single episode, unspecified; F41.1 Generalized anxiety disorder; Z86.73 Personal history of transient ischemic attack (TIA), and cerebral infarction without residual deficits; Z99.2 Dependence on renal dialysis; Z99.81 Dependence on supplemental oxygen; Z87.891 Personal history of nicotine dependence; Z82.5 Family history of asthma and other chronic lower respiratory diseases; Z82.49 Family history of ischemic heart disease and other diseases of the circulatory system; Z88.1 Allergy status to other antibiotic agents; Z91.09 Other allergy status, other than to drugs and biological substances; Z79.899 Other long term (current) drug therapy; Z68.26 Body mass index [BMI] 26.0-26.9, adult

== ENCOUNTER 2019-12-23 10:17 | Inpatient (IN) | payer OTHER, MEDICAID ==
[~2019-12-23] VITALS: Ht 177.8 cm; Wt 79.5 kg
[2019-12-23] VITALS (7 sets, daily range): BP systolic 108–151; BP diastolic 48–68
[~2019-12-23 10:17] MED LIST changes: +CITALOPRAM HYDR40 MG PO; +Carafate1 GM/10 ML PO; +NATURE'S BLEND F1 MG PO; +PROTONIX40 M1 PO; +RENVELA800 MG PO; +VITAMIN D32000 UNI1 PO
--- NOTE | 2019-12-23 11:15 | NUR ---
spoke with on the phone, updated her on pt condition.
--- NOTE | 2019-12-23 11:16 | NUR ---
encouraged pt to void, urinal placed per pt.
[2019-12-23 11:22] LABS: BASO % 0.9 % (0.0-1.0); EOS # 0.2 10*3/uL (0.0-0.4); EOS % 3.7 % (1.0-4.0); HEMATOCRIT 33.2 % (42.0-52.0); LYMPH # 1.1 10*3/uL (1.3-4.4); LYMPH % 23.7 % (27.0-41.0); MEAN CELL VOLUME 105.7 fl (80.0-94.0); MEAN CORPUSCULAR HGB 32.5 pg (27.0-31.0); MEAN CORPUSCULAR HGB CONC 30.7 g/dl (33.0-37.0); MEAN PLATELET VOLUME 11.7 fl (9.6-12.3); MONO # 0.4 10*3/uL (0.1-1.0); MONO % 8.8 % (3.0-9.0); NEUT # 2.9 10*3/uL (2.3-7.9); NEUT % 62.7 % (47.0-73.0); PLATELET COUNT AUTOMATED 105 10*3/uL (130-400); RED BLOOD COUNT 3.14 10*6/uL (4.50-5.90); RED CELL DISTRI WIDTH 12.7 % (0-14.5); WHITE BLOOD COUNT 4.7 10*3/uL (4.8-10.8)
[2019-12-23 11:38] LABS: ALKALINE PHOSPHATASE 88 U/L (45-117); BUN 38 mg/dl (7-24); CHLORIDE 103 mmol/L (98-107); CREATININE 3.23 mg/dL (0.70-1.30); SGOT/AST 17 IU/L (3-35); SGPT/ALT 18 U/L (12-78); SODIUM 136 mmol/L (136-145); TOTAL PROTEIN 6.6 gm/dL (6.4-8.2)
[2019-12-23 11:40] LABS: ETHYL ALCOHOL < 3.0 mg/dl (<3)
--- NOTE | 2019-12-23 12:30 | NUR ---
PHOTO TAKEN OF LT RING FINGER WOUND, SCABS TO BILATERAL ARMS, COCCYX RED BUT BLANCHED.
--- NOTE | 2019-12-23 13:03 | NUR ---
A 74, admitted to , under the services of BENJAMIN Santizo DO with a diagnosis of ADULT FAILURE TO THRIVE, WEAKNESS. Chief complaint is ANXIETY, WEAKNESS. Patient arrived via CART from ER. Monitor applied. Initial assessment completed. Vital signs taken and recorded. BENJAMIN SANTIZO DO notified of admission to the unit. Orders received. See assessment for past medical history, medications and allergies. Patient and/or family oriented to unit. visitation policy reviewed. Clothing/patient valuable form completed. MIYA BERGER
--- NOTE | 2019-12-23 20:00 | NUR ---
ASSESSMENT COMPLETE. ANXIOUS 1:1 WITH SOME EFFECT. CALLED AND SPOKE TO HIM. TOOK PO MEDS WITHOUT DIFFICULTY. CALL LIGHT IN REACH.
[2019-12-24] VITALS: BP 121/46
--- NOTE | 2019-12-24 | NUR ---
RESTING QUIETLY IN BED WITH EYES CLOSED. RESPONDS TO VERBAL STIMULI. NO C/O VOICED. CALL LIGHT IN REACH.
[2019-12-24 05:54] LABS: CREATININE 3.97 mg/dL (0.70-1.30)
[2019-12-24 06:00] LABS: THYROID STIM HORMONE (HS) 1.68 uIU/ml (0.358-4.75)
[2019-12-24 06:11] LABS: BASO % 0.6 % (0.0-1.0); EOS # 0.2 10*3/uL (0.0-0.4); EOS % 5.1 % (1.0-4.0); HEMATOCRIT 33.3 % (42.0-52.0); LYMPH # 1.7 10*3/uL (1.3-4.4); LYMPH % 35.7 % (27.0-41.0); MEAN CELL VOLUME 107.1 fl (80.0-94.0); MEAN CORPUSCULAR HGB 32.2 pg (27.0-31.0); MEAN PLATELET VOLUME 12.4 fl (9.6-12.3); MONO # 0.4 10*3/uL (0.1-1.0); MONO % 7.7 % (3.0-9.0); NEUT # 2.4 10*3/uL (2.3-7.9); NEUT % 50.7 % (47.0-73.0); PLATELET COUNT AUTOMATED 103 10*3/uL (130-400); RED BLOOD COUNT 3.11 10*6/uL (4.50-5.90); RED CELL DISTRI WIDTH 12.8 % (0-14.5); WHITE BLOOD COUNT 4.7 10*3/uL (4.8-10.8)
--- NOTE | 2019-12-24 07:15 | NUR ---
24 HR chart check completed.
[2019-12-24 08:00] VITALS: BP 132/59
[2019-12-24 08:48] LABS: BILIRUBIN Negative (Negative); BLOOD Negative (Negative); CLARITY Clear (Clear); COLOR Yellow (Yellow); GLUCOSE Negative (Negative); KETONE Negative (Negative); LEUKO ESTERASE Trace (Negative); NITRITE Negative (Negative); PH 7.5 (4.5-8.0); SPECIFIC GRAVITY 1.015 (1.001-1.030)
[2019-12-24 08:55] LABS: BACTERIA TRACE; RBC 0-2 rbc/hpf (0-2); URINE AMPHETAMINES < 1000 (1000ng/ml); URINE BARBITURATES < 200 (200ng/ml); URINE BENZODIAZEPINES < 200 (200ng/ml); URINE CANNABINOIDS (THC) < 50 (50ng/ml); URINE COCAINE < 300 (300ng/ml); URINE METHADONE < 300 (300ng/ml); URINE OPIATES > 300 (300ng/ml); WBC 16-20 wbc/hpf (0-5)
[2019-12-24 08:56] LABS: URINE PHENCYCLIDINE < 25 (25ng/ml)
--- NOTE | 2019-12-24 08:57 | NUR ---
RESTING WITH EYES CLOSED, NO ACUTE DISTRESS NOTED. RESPIRATIONS EASY. LUNGS DIMINISHED, CLEAR. PULSE OX 100% RA. VISTARIL PROVIDED TO ASSIST WITH ANXIETY. CALL LIGHT WITHIN REACH. NO VOICED COMPLAINTS. BED ALARM MAINTAINED FOR SAFETY
--- NOTE | 2019-12-24 09:30 | NUR ---
EARLIER MEDS APPEAR EFFECTIVE, SLEEPING. RESPIRATIONS EASY. CALL LIGHT WITHIN REACH. BED ALARM MAINTAINED FOR SAFETY
[2019-12-24 12:00] VITALS: BP 100/59
--- NOTE | 2019-12-24 12:00 | NUR ---
CONTINUES TO SLEEP. NO DISTRESS NOTED. RESPIRATIONS EASY. CALL LIGHT WITHIN REACH.
[2019-12-24 16:00] VITALS: BP 104/53
--- NOTE | 2019-12-24 16:00 | NUR ---
SLEEPING IN BED. NO DISTRESS NOTED. RESPIRATIONS EASY. VSS. CALL LIGHT WITHIN REACH. BED ALARM MAINTAINED
[2019-12-24 20:00] VITALS: BP 101/37
--- NOTE | 2019-12-24 22:04 | NUR ---
SCHEDULED MS CONTIN AND KLONOPIN GIVEN PER ORDER. PT ALSO C/O HEADACHE AND REQUESTING TYLENOL SO HE CAN SLEEP. PO TYLENOL GIVEN. WILL MONITOR EFFECTIVENESS. CALL LIGHT LEFT IN REACH.
--- NOTE | 2019-12-24 23:00 | NUR ---
EARLIER MEDS EFFECTIVE PER PT. PT DENIES ANY OTHER NEEDS AT PRESENT TIME. WILL MONITOR. CALL LIGHT IN REACH.
[2019-12-25] VITALS: BP 123/56
--- NOTE | 2019-12-25 04:03 | NUR ---
PT ASLEEP IN BED. RESPIRATIONS EASY. NO S/S OF DISTRESS NOTED. WILL MONITOR. CALL LIGHT IN REACH.
[2019-12-25 06:15] LABS: BASO % 0.8 % (0.0-1.0); EOS # 0.3 10*3/uL (0.0-0.4); EOS % 5.2 % (1.0-4.0); HEMATOCRIT 33.8 % (42.0-52.0); LYMPH # 1.7 10*3/uL (1.3-4.4); LYMPH % 32.2 % (27.0-41.0); MEAN CELL VOLUME 105.6 fl (80.0-94.0); MEAN CORPUSCULAR HGB 31.9 pg (27.0-31.0); MEAN CORPUSCULAR HGB CONC 30.2 g/dl (33.0-37.0); MEAN PLATELET VOLUME 12.6 fl (9.6-12.3); MONO # 0.4 10*3/uL (0.1-1.0); MONO % 7.3 % (3.0-9.0); NEUT # 2.8 10*3/uL (2.3-7.9); NEUT % 54.3 % (47.0-73.0); PLATELET COUNT AUTOMATED 119 10*3/uL (130-400); RED CELL DISTRI WIDTH 12.8 % (0-14.5); WHITE BLOOD COUNT 5.2 10*3/uL (4.8-10.8)
[2019-12-25 06:26] LABS: ALBUMIN 2.9 gm/dl (3.1-4.5); CREATININE 4.83 mg/dL (0.70-1.30); POTASSIUM 4.2 mmol/L (3.5-5.1)
[2019-12-25 06:28] LABS: TOTAL PROTEIN 6.1 gm/dL (6.4-8.2)
--- NOTE | 2019-12-25 07:00 | NUR ---
ARRIVED ON SHIFT, REPORT RECEIVED FROM OFFGOING NURSE, ASSUMED CARE OF PATIENT.
--- NOTE | 2019-12-25 07:26 | NUR ---
Demographics and insurance information faxed to all [facility] facilities to check if in network with any of their locations.
--- NOTE | 2019-12-25 07:45 | NUR ---
INTRODUCED SELF TO PATIENT, BED IN LOW POSITION, WHEEL LOCKS ENGAGED, BED ALARM ON, SIDE RAILS UP X 2 FOR TURNING AND REPOSITIONING, BED ALARM ON, CALL LIGHT WITHIN REACH, NO NEEDS VOICED AT THIS TIME, WHITE BOARD UPDATED.
[2019-12-25 08:00] VITALS: BP 111/48
--- NOTE | 2019-12-25 08:35 | NUR ---
PHYSICAL THERAPY Physical Therapy evaluation completed on 4th floor with full evaluation to follow. Recommend physical therapy per plan of care and SNF upon discharge. Thank you for this referral. Leonard Bender SPT Chel Yeung PT
--- NOTE | 2019-12-25 08:35 | NUR ---
Occupational Therapy evaluation completed on 4 with full eval to follow. Precautions include fall risk; bed alarm,w/c dependent,high complexity level 13605. Recommend OT per POC and SNF to enable return home at [facility]. Thank you for this referral. Pao Cook OTR/l
--- NOTE | 2019-12-25 08:52 | NUR ---
Patient referral also faxed to [facility] and [facility]. Waiting on review/acceptance.
--- NOTE | 2019-12-25 09:00 | NUR ---
[place] Machine Operator in to talk to patient. Patient states lives at home with . There are no steps in the home. Physician: elaine casillas [facility]acy: [facility] Home health services: none at present Patient's level of ADLs: MODERATE ASSIST Patient has working utilities: all working DME: walker, home oxygen Follow-up physician's appointment after d/c: will be made by hospitalist nurse director upon discharge Does patient want to access PORTAL?: no Discharge plan discussed with patient, he states he lives at home with his but she is currently in another hospital so his son has been staying with him, discussed with him wanting him to go to a short term [facility] along with her going . patient was agreeable to whatever facility the has chosen. internet media planner will contact patient's and make appropriate referrals. case management will follow. ROMARIO VÁSQUEZ
--- NOTE | 2019-12-25 09:57 | NUR ---
Lubna from [facility] stating patients insurance is not in network with ANY of their locations. Referrals are still being reviewed at [facility].
--- NOTE | 2019-12-25 11:09 | NUR ---
Attempted to contact patients via her cell phone to discuss discharge planning. Went straight to voicemail. Left message to return call.
--- NOTE | 2019-12-25 11:31 | NUR ---
patients called back stating that [facility] says she doesn't qualify for snf stay so she will be discharged home today. She is stating she would like her husbands discharge plan "discharge to home with new order for [facility] services" . She will be home later today.
[2019-12-25] MEDS ORDERED: TRINTELLIX10 MG PO (12:15)
[2019-12-25] MEDS ORDERED: HYDROXYZINE HCL25 MG PO (12:15)
[2019-12-25] MEDS ORDERED: CLONAZEPAM0.5 M2 PO (12:15)
--- NOTE | 2019-12-25 12:50 | NUR ---
UPON RETURNING FROM BREAK, I WAS NOTIFIED THAT PATIENTS DISCHARGE ORDERS ARE IN, AT THE SAME TIME RECEIVED CALL FROM SCOUT IN DIALYSIS QUESTIONED ABOUT PATIENT GETTING HIS DIALYSIS TODAY, CALL PLACED TO DR. THAKKAR, HE ASKED WHAT PATIENT HAD PLANNED FOR DIALYSIS. I ADVISED HIM THAT PATIENT WAS SCHEDULED FOR INPT DIALYSIS TODAY. SCOUT ADVISED SHE SPOKE WITH DR. FLANNERY AND PATIENT IS TO RECEIVE DIALYSIS PRIOR TO LEAVING. ADVISED DR. THAKKAR, HE SAID PATIENT COULD BE DISCHARGE TOMORROW, UNLESS HE WANTED TO GO TODAY.
--- NOTE | 2019-12-25 13:08 | NUR ---
SPOKE WITH PATIENTS DAUGHTER, PATIENTS SPOUSE BEING DISCHARGED TODAY WELL, FAMILY REQUESTS PATIENT GET HIS DIALYSIS TREATMENT TODAY AND DISCHARGED TOMORROW, SPOKE WITH DR. THAKKAR HE IS AGREEABLE TO THAT PLAN IS PATIENT, CASEMANGEMENT NOTIFIED.
--- NOTE | 2019-12-25 14:31 | NUR ---
cases management contacted [facility]. spoke to Kriss, referral given and patient's information faxed
[2019-12-25 16:00] VITALS: BP 100/50
[2019-12-25 20:00] VITALS: BP 121/47
[2019-12-26] VITALS: BP 122/48
--- NOTE | 2019-12-26 01:10 | NUR ---
PT ASLEEP IN BED. NO S/S OF DISTRESS NOTED. WILL MONITOR. CALL LIGHT IN REACH.
[2019-12-26 07:09] LABS: CREATININE 3.99 mg/dL (0.70-1.30); POTASSIUM 4.2 mmol/L (3.5-5.1)
--- NOTE | 2019-12-26 07:48 | NUR ---
OT NOTE Pt was seen this A.M. 1:1 for 18 minute OT session. Upon arrival pt was supine in bed. Pt identified by name and and had complaints of 5/10 L knee pain. Pt transferred supine to sit EOB with modA X 2 for assist with upper body and lower body. Upon inital rise to the EOB pt presented with retrograde LOB and R lateral lean requiring modA to correct. Pt was then able to self correct after aprox 60 seconds. While sitting EOB challenged pt's dynamic sitting balance while weight shifting, crossing midline, and reaching over all planes. Pt was able to maintain F- sitting balance throughout. Sit to stand then completed from bed level with Oma X 2 followed by standing pivot from the EOB to the bedside chair with Oma X 2. There he was left sitting upright with call light in hand, tray table in place, and body alarm activated for safety. Continue with rec D/C plan to SNF. LEISA Billings
[2019-12-26 08:00] VITALS: BP 122/52
--- NOTE | 2019-12-26 08:15 | NUR ---
PHYSICAL THERAPY Patient seen this am 1:1 for therapy visit and was resting supine in bed upon therapist arrival. Patient identified by name / and reports 5/10 L medial knee pain at rest. Patient was able to perform supine B ankle pumps, gentle heel slides, and SLR x 2 without x 1- reps each c/o prior to transfering supine to sit EOB with MOD A x 2. Patient demonstrated increased LE stiffness / Rigidity and tolerated static EOB sit x 4-5 mintes CGA x 1. Patient performed sit to stand transfer, CLOTH LAYER/MIN x 2, completing SPT to bedside arm chair. Patient demonstrated, POOR step sequence while over reaching for arm of chair, without fully backing up all the way to improve safety awareness. Patient remained in bedside chair with call light, tray table, cell phone and body alarm for safety. Will continue per POC as tolerated, total treatment time 15 minutes. Jacques Centeno, PATIENT ACCOUNTS MANAGER
--- NOTE | 2019-12-26 08:56 | NUR ---
Discharge instructions reviewed with patient/family. Patient receptive and verbalizes understanding. Follow-up care arranged. Written instructions given to patient/family.IV REMOVED, TAKEN OUT VIA W/C BY NURSING STUDENTS MAU HARTLEYN, RN
--- NOTE | 2019-12-27 07:42 | NUR ---
PHYSICAL THERAPY CO-SIGN I approve of the Physical Therapy notes written above. Chel Yeung PT
--- NOTE | 2019-12-27 07:51 | NUR ---
OCCUPATIONAL THERAPY CO-SIGN I approve of the Occupational Therapy notes written above. PAULETTE COUGHLIN OTR/La
== END 2019-12-26 08:56 | disposition home or self-care (01) | DRG 880 ==
LOC: ED 10:17 → 4E 12:16 → EDHOLD 12:16 → 4E 12:32
PROVIDERS: Emergency Medicine; Family Medicine; Internal Medicine Nephrology; Student in an Organized Health Care Education/Training Program; ADMIT Student in an Organized Health Care Education/Training Program; ATTEND Student in an Organized Health Care Education/Training Program
DX: F41.1 Generalized anxiety disorder (principal); N18.6 End stage renal disease; E44.0 Moderate protein-calorie malnutrition; I50.32 Chronic diastolic (congestive) heart failure; I69.354 Hemiplegia and hemiparesis following cerebral infarction affecting left non-dominant side; I13.2 Hypertensive heart and chronic kidney disease with heart failure and with stage 5 chronic kidney disease, or end stage renal disease; G89.29 Other chronic pain; M10.9 Gout, unspecified; K59.09 Other constipation; D72.819 Decreased white blood cell count, unspecified; R62.7 Adult failure to thrive; E11.22 Type 2 diabetes mellitus with diabetic chronic kidney disease; N40.0 Benign prostatic hyperplasia without lower urinary tract symptoms; F32.9 Major depressive disorder, single episode, unspecified; M54.9 Dorsalgia, unspecified; I87.2 Venous insufficiency (chronic) (peripheral); D53.9 Nutritional anemia, unspecified; E83.41 Hypermagnesemia; Z20.828 Contact with and (suspected) exposure to other viral communicable diseases; Z88.8 Allergy status to other drugs, medicaments and biological substances; Z87.891 Personal history of nicotine dependence; Z83.6 Family history of other diseases of the respiratory system; Z82.49 Family history of ischemic heart disease and other diseases of the circulatory system; Z99.2 Dependence on renal dialysis; Z99.81 Dependence on supplemental oxygen; Z68.25 Body mass index [BMI] 25.0-25.9, adult; Z79.899 Other long term (current) drug therapy

== ENCOUNTER 2020-03-13 10:04 | Emergency (ER) | payer OTHER, MEDICAID ==
[~2020-03-13] VITALS: Wt 79.8 kg
[~2020-03-13 10:04] MED LIST changes: +CLONAZEPAM0.5 M2 PO; +HYDROXYZINE HCL25 MG PO; +TRINTELLIX10 MG PO
[2020-03-13 10:05] VITALS: BP 161/62
== END 2020-03-13 13:11 | disposition home or self-care (01) ==
LOC: ED 10:04
DX: S01.81XA Laceration without foreign body of other part of head, initial encounter (principal); S63.501A Unspecified sprain of right wrist, initial encounter; I11.0 Hypertensive heart disease with heart failure; I50.9 Heart failure, unspecified; J44.9 Chronic obstructive pulmonary disease, unspecified; E11.9 Type 2 diabetes mellitus without complications; Z88.8 Allergy status to other drugs, medicaments and biological substances; Z79.899 Other long term (current) drug therapy; W19.XXXA Unspecified fall, initial encounter; Y93.89 Activity, other specified; Y92.89 Other specified places as the place of occurrence of the external cause; Y99.8 Other external cause status

== ENCOUNTER → 2022-05-05 | Outpatient (CLI) | payer OTHER, MEDICAID ==
[~2022-05-05] MED LIST changes: +CLOPIDOGREL75 MG PO
== END | disposition home or self-care (01) ==
LOC: WOUNDCARE 02:10
PROVIDERS: ATTEND Nurse Practitioner Family
DX: L89.153 Pressure ulcer of sacral region, stage 3 (principal); E11.51 Type 2 diabetes mellitus with diabetic peripheral angiopathy without gangrene; E11.21 Type 2 diabetes mellitus with diabetic nephropathy; E11.22 Type 2 diabetes mellitus with diabetic chronic kidney disease; I13.0 Hypertensive heart and chronic kidney disease with heart failure and stage 1 through stage 4 chronic kidney disease, or unspecified chronic kidney disease; I50.9 Heart failure, unspecified; N18.9 Chronic kidney disease, unspecified; E11.43 Type 2 diabetes mellitus with diabetic autonomic (poly)neuropathy; E78.5 Hyperlipidemia, unspecified; D50.9 Iron deficiency anemia, unspecified; I25.10 Atherosclerotic heart disease of native coronary artery without angina pectoris; I87.2 Venous insufficiency (chronic) (peripheral); K21.9 Gastro-esophageal reflux disease without esophagitis; M10.9 Gout, unspecified; F41.9 Anxiety disorder, unspecified; F32.A Depression, unspecified; Z82.3 Family history of stroke; Z87.891 Personal history of nicotine dependence; Z98.49 Cataract extraction status, unspecified eye

== ENCOUNTER → 2022-05-12 | Outpatient (CLI) | payer OTHER, MEDICAID | LOC: WOUNDCARE 03:58 | PROVIDERS: ATTEND Nurse Practitioner Family | DX: L89.153 Pressure ulcer of sacral region, stage 3 (principal); L89.329 Pressure ulcer of left buttock, unspecified stage; E11.51 Type 2 diabetes mellitus with diabetic peripheral angiopathy without gangrene; E11.22 Type 2 diabetes mellitus with diabetic chronic kidney disease; I13.0 Hypertensive heart and chronic kidney disease with heart failure and stage 1 through stage 4 chronic kidney disease, or unspecified chronic kidney disease; I50.9 Heart failure, unspecified; N18.9 Chronic kidney disease, unspecified; E11.21 Type 2 diabetes mellitus with diabetic nephropathy; E11.43 Type 2 diabetes mellitus with diabetic autonomic (poly)neuropathy; E78.5 Hyperlipidemia, unspecified; D50.9 Iron deficiency anemia, unspecified; I25.10 Atherosclerotic heart disease of native coronary artery without angina pectoris; I87.2 Venous insufficiency (chronic) (peripheral); M10.9 Gout, unspecified; K21.9 Gastro-esophageal reflux disease without esophagitis; F41.9 Anxiety disorder, unspecified; F32.A Depression, unspecified; Z82.3 Family history of stroke; Z87.891 Personal history of nicotine dependence; Z98.49 Cataract extraction status, unspecified eye; Z86.73 Personal history of transient ischemic attack (TIA), and cerebral infarction without residual deficits ==

== ENCOUNTER → 2022-05-19 | Outpatient (CLI) | payer OTHER, MEDICAID | END | disposition home or self-care (01) | LOC: WOUNDCARE 00:01 | PROVIDERS: ATTEND Nurse Practitioner Family | DX: L89.153 Pressure ulcer of sacral region, stage 3 (principal); L89.329 Pressure ulcer of left buttock, unspecified stage; E11.51 Type 2 diabetes mellitus with diabetic peripheral angiopathy without gangrene; E11.21 Type 2 diabetes mellitus with diabetic nephropathy; E11.43 Type 2 diabetes mellitus with diabetic autonomic (poly)neuropathy; E11.22 Type 2 diabetes mellitus with diabetic chronic kidney disease; I13.0 Hypertensive heart and chronic kidney disease with heart failure and stage 1 through stage 4 chronic kidney disease, or unspecified chronic kidney disease; N18.9 Chronic kidney disease, unspecified; I50.9 Heart failure, unspecified; E78.5 Hyperlipidemia, unspecified; I25.10 Atherosclerotic heart disease of native coronary artery without angina pectoris; I87.2 Venous insufficiency (chronic) (peripheral); K21.9 Gastro-esophageal reflux disease without esophagitis; M10.9 Gout, unspecified; F41.9 Anxiety disorder, unspecified; F32.A Depression, unspecified; Z82.3 Family history of stroke; Z87.891 Personal history of nicotine dependence; Z98.49 Cataract extraction status, unspecified eye; Z86.73 Personal history of transient ischemic attack (TIA), and cerebral infarction without residual deficits ==

== ENCOUNTER → 2022-05-26 | Outpatient (CLI) | payer OTHER, MEDICAID | END | disposition home or self-care (01) | LOC: WOUNDCARE 10:47 | PROVIDERS: ATTEND Nurse Practitioner Family | DX: L89.153 Pressure ulcer of sacral region, stage 3 (principal); S41.111A Laceration without foreign body of right upper arm, initial encounter; S51.811A Laceration without foreign body of right forearm, initial encounter; L89.329 Pressure ulcer of left buttock, unspecified stage; E11.21 Type 2 diabetes mellitus with diabetic nephropathy; E11.51 Type 2 diabetes mellitus with diabetic peripheral angiopathy without gangrene; E11.22 Type 2 diabetes mellitus with diabetic chronic kidney disease; I13.0 Hypertensive heart and chronic kidney disease with heart failure and stage 1 through stage 4 chronic kidney disease, or unspecified chronic kidney disease; I50.9 Heart failure, unspecified; N18.9 Chronic kidney disease, unspecified; I25.10 Atherosclerotic heart disease of native coronary artery without angina pectoris; E11.43 Type 2 diabetes mellitus with diabetic autonomic (poly)neuropathy; I87.2 Venous insufficiency (chronic) (peripheral); E78.5 Hyperlipidemia, unspecified; D50.9 Iron deficiency anemia, unspecified; K21.9 Gastro-esophageal reflux disease without esophagitis; M10.9 Gout, unspecified; Z82.3 Family history of stroke; F32.A Depression, unspecified; Z87.891 Personal history of nicotine dependence; Z98.49 Cataract extraction status, unspecified eye; F41.9 Anxiety disorder, unspecified; X58.XXXA Exposure to other specified factors, initial encounter; Y93.89 Activity, other specified; Y92.89 Other specified places as the place of occurrence of the external cause; Y99.8 Other external cause status ==

== ENCOUNTER → 2022-06-09 | Outpatient (CLI) | payer OTHER, MEDICAID | END | disposition home or self-care (01) | LOC: WOUNDCARE 01:24 | PROVIDERS: ATTEND Nurse Practitioner Family | DX: L89.153 Pressure ulcer of sacral region, stage 3 (principal); S51.811D Laceration without foreign body of right forearm, subsequent encounter; L89.329 Pressure ulcer of left buttock, unspecified stage; E11.51 Type 2 diabetes mellitus with diabetic peripheral angiopathy without gangrene; E11.21 Type 2 diabetes mellitus with diabetic nephropathy; I25.10 Atherosclerotic heart disease of native coronary artery without angina pectoris; E11.43 Type 2 diabetes mellitus with diabetic autonomic (poly)neuropathy; E11.22 Type 2 diabetes mellitus with diabetic chronic kidney disease; I13.0 Hypertensive heart and chronic kidney disease with heart failure and stage 1 through stage 4 chronic kidney disease, or unspecified chronic kidney disease; N18.9 Chronic kidney disease, unspecified; I50.9 Heart failure, unspecified; I87.2 Venous insufficiency (chronic) (peripheral); E78.5 Hyperlipidemia, unspecified; D50.9 Iron deficiency anemia, unspecified; K21.9 Gastro-esophageal reflux disease without esophagitis; M10.9 Gout, unspecified; F41.9 Anxiety disorder, unspecified; F32.A Depression, unspecified; Z86.73 Personal history of transient ischemic attack (TIA), and cerebral infarction without residual deficits; Z82.3 Family history of stroke; Z87.891 Personal history of nicotine dependence; Z98.49 Cataract extraction status, unspecified eye; X58.XXXD Exposure to other specified factors, subsequent encounter ==

== ENCOUNTER → 2022-06-23 | Outpatient (CLI) | payer OTHER, MEDICAID | END | disposition home or self-care (01) | LOC: WOUNDCARE 01:28 | PROVIDERS: ATTEND Nurse Practitioner Family | DX: L89.153 Pressure ulcer of sacral region, stage 3 (principal); L89.510 Pressure ulcer of right ankle, unstageable; L89.329 Pressure ulcer of left buttock, unspecified stage; S51.811D Laceration without foreign body of right forearm, subsequent encounter; S91.001D Unspecified open wound, right ankle, subsequent encounter; E11.51 Type 2 diabetes mellitus with diabetic peripheral angiopathy without gangrene; E11.21 Type 2 diabetes mellitus with diabetic nephropathy; E11.43 Type 2 diabetes mellitus with diabetic autonomic (poly)neuropathy; E11.22 Type 2 diabetes mellitus with diabetic chronic kidney disease; I13.0 Hypertensive heart and chronic kidney disease with heart failure and stage 1 through stage 4 chronic kidney disease, or unspecified chronic kidney disease; I50.9 Heart failure, unspecified; N18.9 Chronic kidney disease, unspecified; E78.5 Hyperlipidemia, unspecified; I87.2 Venous insufficiency (chronic) (peripheral); D50.9 Iron deficiency anemia, unspecified; I25.10 Atherosclerotic heart disease of native coronary artery without angina pectoris; K21.9 Gastro-esophageal reflux disease without esophagitis; M10.9 Gout, unspecified; F41.9 Anxiety disorder, unspecified; F32.A Depression, unspecified; Z82.3 Family history of stroke; Z87.891 Personal history of nicotine dependence; Z98.49 Cataract extraction status, unspecified eye; Z86.73 Personal history of transient ischemic attack (TIA), and cerebral infarction without residual deficits; X58.XXXD Exposure to other specified factors, subsequent encounter ==

== ENCOUNTER → 2022-07-14 | Outpatient (CLI) | payer OTHER, MEDICAID | END | disposition home or self-care (01) | LOC: WOUNDCARE 01:01 | PROVIDERS: ATTEND Nurse Practitioner Family | DX: L89.153 Pressure ulcer of sacral region, stage 3 (principal); L89.510 Pressure ulcer of right ankle, unstageable; S51.811D Laceration without foreign body of right forearm, subsequent encounter; S91.001D Unspecified open wound, right ankle, subsequent encounter; E11.51 Type 2 diabetes mellitus with diabetic peripheral angiopathy without gangrene; E11.21 Type 2 diabetes mellitus with diabetic nephropathy; E11.43 Type 2 diabetes mellitus with diabetic autonomic (poly)neuropathy; E11.22 Type 2 diabetes mellitus with diabetic chronic kidney disease; I13.0 Hypertensive heart and chronic kidney disease with heart failure and stage 1 through stage 4 chronic kidney disease, or unspecified chronic kidney disease; N18.9 Chronic kidney disease, unspecified; I50.9 Heart failure, unspecified; I25.10 Atherosclerotic heart disease of native coronary artery without angina pectoris; I87.2 Venous insufficiency (chronic) (peripheral); E78.5 Hyperlipidemia, unspecified; D50.9 Iron deficiency anemia, unspecified; K21.9 Gastro-esophageal reflux disease without esophagitis; M10.9 Gout, unspecified; F41.9 Anxiety disorder, unspecified; F32.A Depression, unspecified; Z82.3 Family history of stroke; Z87.891 Personal history of nicotine dependence; Z98.49 Cataract extraction status, unspecified eye; X58.XXXD Exposure to other specified factors, subsequent encounter ==

== ENCOUNTER → 2022-07-28 | Outpatient (CLI) | payer OTHER, MEDICAID | END | disposition home or self-care (01) | LOC: WOUNDCARE 00:57 | PROVIDERS: ATTEND Nurse Practitioner Family | DX: L89.153 Pressure ulcer of sacral region, stage 3 (principal); L89.510 Pressure ulcer of right ankle, unstageable; L89.329 Pressure ulcer of left buttock, unspecified stage; S51.811D Laceration without foreign body of right forearm, subsequent encounter; S91.001D Unspecified open wound, right ankle, subsequent encounter; E11.51 Type 2 diabetes mellitus with diabetic peripheral angiopathy without gangrene; E11.22 Type 2 diabetes mellitus with diabetic chronic kidney disease; I13.0 Hypertensive heart and chronic kidney disease with heart failure and stage 1 through stage 4 chronic kidney disease, or unspecified chronic kidney disease; I50.9 Heart failure, unspecified; N18.9 Chronic kidney disease, unspecified; E11.21 Type 2 diabetes mellitus with diabetic nephropathy; E11.43 Type 2 diabetes mellitus with diabetic autonomic (poly)neuropathy; E78.5 Hyperlipidemia, unspecified; D50.9 Iron deficiency anemia, unspecified; I25.10 Atherosclerotic heart disease of native coronary artery without angina pectoris; I87.2 Venous insufficiency (chronic) (peripheral); K21.9 Gastro-esophageal reflux disease without esophagitis; M10.9 Gout, unspecified; F32.A Depression, unspecified; F41.9 Anxiety disorder, unspecified; Z87.891 Personal history of nicotine dependence; Z98.49 Cataract extraction status, unspecified eye; Z82.3 Family history of stroke; Z86.73 Personal history of transient ischemic attack (TIA), and cerebral infarction without residual deficits; X58.XXXD Exposure to other specified factors, subsequent encounter ==

== ENCOUNTER → 2022-08-11 | Outpatient (CLI) | payer OTHER, MEDICAID | END | disposition home or self-care (01) | LOC: WOUNDCARE 01:54 | PROVIDERS: ATTEND Nurse Practitioner Family | DX: L89.153 Pressure ulcer of sacral region, stage 3 (principal); L89.310 Pressure ulcer of right buttock, unstageable; L89.610 Pressure ulcer of right heel, unstageable; L89.329 Pressure ulcer of left buttock, unspecified stage; S51.811D Laceration without foreign body of right forearm, subsequent encounter; S91.001D Unspecified open wound, right ankle, subsequent encounter; E11.51 Type 2 diabetes mellitus with diabetic peripheral angiopathy without gangrene; E11.21 Type 2 diabetes mellitus with diabetic nephropathy; E11.43 Type 2 diabetes mellitus with diabetic autonomic (poly)neuropathy; E11.22 Type 2 diabetes mellitus with diabetic chronic kidney disease; I13.0 Hypertensive heart and chronic kidney disease with heart failure and stage 1 through stage 4 chronic kidney disease, or unspecified chronic kidney disease; N18.9 Chronic kidney disease, unspecified; I50.9 Heart failure, unspecified; E78.5 Hyperlipidemia, unspecified; I87.2 Venous insufficiency (chronic) (peripheral); I25.10 Atherosclerotic heart disease of native coronary artery without angina pectoris; D50.9 Iron deficiency anemia, unspecified; K21.9 Gastro-esophageal reflux disease without esophagitis; M10.9 Gout, unspecified; F32.A Depression, unspecified; F41.9 Anxiety disorder, unspecified; Z82.3 Family history of stroke; Z87.891 Personal history of nicotine dependence; Z98.49 Cataract extraction status, unspecified eye; X58.XXXD Exposure to other specified factors, subsequent encounter ==

== ENCOUNTER → 2022-08-25 | Outpatient (CLI) | payer OTHER, MEDICAID | END | disposition home or self-care (01) | LOC: WOUNDCARE 02:35 | PROVIDERS: ATTEND Nurse Practitioner Family | DX: L89.153 Pressure ulcer of sacral region, stage 3 (principal); L89.510 Pressure ulcer of right ankle, unstageable; L89.610 Pressure ulcer of right heel, unstageable; S91.001D Unspecified open wound, right ankle, subsequent encounter; E11.51 Type 2 diabetes mellitus with diabetic peripheral angiopathy without gangrene; E11.22 Type 2 diabetes mellitus with diabetic chronic kidney disease; I13.0 Hypertensive heart and chronic kidney disease with heart failure and stage 1 through stage 4 chronic kidney disease, or unspecified chronic kidney disease; I50.9 Heart failure, unspecified; N18.9 Chronic kidney disease, unspecified; E11.21 Type 2 diabetes mellitus with diabetic nephropathy; E11.43 Type 2 diabetes mellitus with diabetic autonomic (poly)neuropathy; E78.5 Hyperlipidemia, unspecified; I25.10 Atherosclerotic heart disease of native coronary artery without angina pectoris; I87.2 Venous insufficiency (chronic) (peripheral); D50.9 Iron deficiency anemia, unspecified; M10.9 Gout, unspecified; K21.9 Gastro-esophageal reflux disease without esophagitis; F41.9 Anxiety disorder, unspecified; F32.A Depression, unspecified; Z82.3 Family history of stroke; Z87.891 Personal history of nicotine dependence; Z98.49 Cataract extraction status, unspecified eye; X58.XXXD Exposure to other specified factors, subsequent encounter ==

== ENCOUNTER → 2022-09-08 | Outpatient (CLI) | payer OTHER, MEDICAID | LOC: WOUNDCARE 01:36 | PROVIDERS: ATTEND Nurse Practitioner Primary Care | DX: L89.153 Pressure ulcer of sacral region, stage 3 (principal); L89.510 Pressure ulcer of right ankle, unstageable; L89.610 Pressure ulcer of right heel, unstageable; L89.329 Pressure ulcer of left buttock, unspecified stage; S91.001D Unspecified open wound, right ankle, subsequent encounter; E11.51 Type 2 diabetes mellitus with diabetic peripheral angiopathy without gangrene; E11.43 Type 2 diabetes mellitus with diabetic autonomic (poly)neuropathy; E11.22 Type 2 diabetes mellitus with diabetic chronic kidney disease; I13.0 Hypertensive heart and chronic kidney disease with heart failure and stage 1 through stage 4 chronic kidney disease, or unspecified chronic kidney disease; N18.9 Chronic kidney disease, unspecified; I50.9 Heart failure, unspecified; I87.2 Venous insufficiency (chronic) (peripheral); E78.5 Hyperlipidemia, unspecified; I25.10 Atherosclerotic heart disease of native coronary artery without angina pectoris; D50.9 Iron deficiency anemia, unspecified; K21.9 Gastro-esophageal reflux disease without esophagitis; M10.9 Gout, unspecified; F32.A Depression, unspecified; F41.9 Anxiety disorder, unspecified; Z87.891 Personal history of nicotine dependence; Z98.49 Cataract extraction status, unspecified eye; Z86.73 Personal history of transient ischemic attack (TIA), and cerebral infarction without residual deficits; X58.XXXD Exposure to other specified factors, subsequent encounter ==

== ENCOUNTER → 2022-09-24 | Outpatient (CLI) | payer OTHER, MEDICAID | LOC: WOUNDCARE 02:06 | PROVIDERS: ATTEND Nurse Practitioner Family | DX: L89.153 Pressure ulcer of sacral region, stage 3 (principal); L89.610 Pressure ulcer of right heel, unstageable; L89.329 Pressure ulcer of left buttock, unspecified stage; S91.001D Unspecified open wound, right ankle, subsequent encounter; L84 Corns and callosities; E11.22 Type 2 diabetes mellitus with diabetic chronic kidney disease; I13.0 Hypertensive heart and chronic kidney disease with heart failure and stage 1 through stage 4 chronic kidney disease, or unspecified chronic kidney disease; N18.9 Chronic kidney disease, unspecified; I50.9 Heart failure, unspecified; E11.43 Type 2 diabetes mellitus with diabetic autonomic (poly)neuropathy; E78.5 Hyperlipidemia, unspecified; E11.51 Type 2 diabetes mellitus with diabetic peripheral angiopathy without gangrene; I25.10 Atherosclerotic heart disease of native coronary artery without angina pectoris; I87.2 Venous insufficiency (chronic) (peripheral); D50.9 Iron deficiency anemia, unspecified; K21.9 Gastro-esophageal reflux disease without esophagitis; M10.9 Gout, unspecified; F32.A Depression, unspecified; F41.9 Anxiety disorder, unspecified; Z87.891 Personal history of nicotine dependence; Z98.49 Cataract extraction status, unspecified eye; Z86.73 Personal history of transient ischemic attack (TIA), and cerebral infarction without residual deficits; X58.XXXD Exposure to other specified factors, subsequent encounter ==

== ENCOUNTER → 2022-10-06 | Outpatient (CLI) | payer OTHER, MEDICAID | LOC: WOUNDCARE 01:54 | PROVIDERS: ATTEND Nurse Practitioner Family | DX: L89.613 Pressure ulcer of right heel, stage 3 (principal); S80.812A Abrasion, left lower leg, initial encounter; S80.811A Abrasion, right lower leg, initial encounter; L89.329 Pressure ulcer of left buttock, unspecified stage; L89.610 Pressure ulcer of right heel, unstageable; S91.001D Unspecified open wound, right ankle, subsequent encounter; E11.22 Type 2 diabetes mellitus with diabetic chronic kidney disease; I13.0 Hypertensive heart and chronic kidney disease with heart failure and stage 1 through stage 4 chronic kidney disease, or unspecified chronic kidney disease; I50.9 Heart failure, unspecified; N18.9 Chronic kidney disease, unspecified; E11.51 Type 2 diabetes mellitus with diabetic peripheral angiopathy without gangrene; E11.43 Type 2 diabetes mellitus with diabetic autonomic (poly)neuropathy; E78.5 Hyperlipidemia, unspecified; I87.2 Venous insufficiency (chronic) (peripheral); I25.10 Atherosclerotic heart disease of native coronary artery without angina pectoris; D50.9 Iron deficiency anemia, unspecified; K21.9 Gastro-esophageal reflux disease without esophagitis; M10.9 Gout, unspecified; F32.A Depression, unspecified; F41.9 Anxiety disorder, unspecified; Z86.73 Personal history of transient ischemic attack (TIA), and cerebral infarction without residual deficits; Z87.891 Personal history of nicotine dependence; Z98.49 Cataract extraction status, unspecified eye; X58.XXXA Exposure to other specified factors, initial encounter; Y93.89 Activity, other specified; Y92.89 Other specified places as the place of occurrence of the external cause; Y99.8 Other external cause status ==